=== PATIENT | male | born 1955 | race Caucasian/White ===

== ENCOUNTER 2018-03-04 05:32 | Inpatient (IN) | payer BC ==
--- NOTE | 2018-02-24 16:54 | HP ---
HISTORY AND PHYSICAL: DATE OF ADMISSION/SURGERY: 03/04/18. DATE OF OFFICE VISIT: 02/22/18. SURGEON: Yessenia Lai M.D.* (DICTATED BY TOSIN FERNANDEZ) PROCEDURE: Left total knee arthroplasty. CHIEF COMPLAINT: Left knee pain. HISTORY OF PRESENT ILLNESS: Mr. Dale is a 62-year-old gentleman with continued complaints of left knee pain. He has failed conservative treatment and elected to proceed with a left total knee arthroplasty. PAST MEDICAL HISTORY: Diabetes, hypertension, and high cholesterol. PAST SURGICAL HISTORY: Left knee scope x2. CURRENT MEDICATIONS: 1. Metformin 500 mg twice a day. 2. Atorvastatin calcium 80 mg every other day. 3. Lisinopril 20 mg daily. 4. Glipizide 5 mg twice a day. 5. Metoprolol 50 mg twice a day. 6. Amlodipine 5 mg once a day. ALLERGIES: No known drug allergies. FAMILY HISTORY: Coronary artery disease, prostate cancer, and stroke. SOCIAL HISTORY: He is a 62-year-old gentleman, who lives alone. He smokes about a pack a day. Denies use of drugs, uses occasional alcohol. REVIEW OF SYSTEMS: A complete 14-point review of systems was reviewed with the patient. It was positive for diabetes. He denies a history of DVT, PE, hepatitis, HIV or anesthesia problems. PHYSICAL EXAMINATION GENERAL: He is well developed, well nourished, in no acute distress. VITAL SIGNS: He stands 6 feet 1 inch tall, weighs 267 pounds. His blood pressure is 146/92, and his heart rate is 80. HEENT: Normocephalic, atraumatic. NECK: Supple. No palpable lymph nodes. PULMONARY: Lungs are clear to auscultation bilaterally. CARDIO: Regular rate and rhythm. Strong S1, S2. ABDOMEN: Soft, nontender, nondistended. MUSCULOSKELETAL: Left lower extremity: The skin is intact. There are no open wounds or abrasions. He has a moderate joint effusion. He has tenderness over the medial and lateral joint line. Range of motion is 10 to 120 degrees with patellofemoral crepitus. There is a significant varus deformity. He has a 2+ dorsalis pedis pulse, intact sensation and his lower extremity muscle group strengths are intact at 5/5. NEUROLOGIC: He is alert and oriented x3. ASSESSMENT AND PLAN: Mr. Dale is a 62-year-old gentleman with end-stage osteoarthritis of the left knee. He has failed conservative treatment and elected to proceed with a left total knee arthroplasty. Surgery is scheduled for 03/04/[address] Lai discussed the risks, the benefits of the surgery at today's visit and all of his questions were answered. He will follow up with Dr. Lai 2 weeks after the surgery. TOSIN FERNANDEZ [id number]/CPS #: [id number] [facility]
[~2018-03-04 05:32] MED LIST: Buffered Lidocaine 0.9% SYRIN* 5 ML/SYR SYRINGE INTRADERM ONE; Tranexamic Acid 1,000 MG in NS 0.9% 50 ML* (outpatient use) IV SCH
--- OUTSIDE RECORDS SUMMARY | 2018-03-04 05:36 | XMS REPORT | Continuity of Care Document ---
:1955 External Reference #:[id number] Author Name MoniquePool salter Care Team Providers Name Role Phone Sabino Robert DO Primary Care Physician Unavailable Payers Type Date Identification Numbers Payment Provider Subscriber Policy Number: [id number] [employer] Roger Dale PayID: [id number] [address] [address] [place] [address] Advance Directives Description No Information Available Problems Date Description Provider Status Onset: 12/07/2017 Localized, primary osteoarthritis Yessenia Lai M.D. Active Family History Date Family Member(s) Problem(s) Comments General No Current Problems Social History Type Date Description Comments Sex Unknown Lives With Alone Occupation Retired ETOH Use Currently consumes 5-10 drinks/week alcohol Tobacco Use Start: Unknown Heavy tobacco smoker (more than 10 cigarettes/day) Smoking Status Reviewed: 02/22/18 Heavy tobacco smoker (more than 10 cigarettes/day) Exercise Type/Frequency Exercises regularly Allergies, Adverse Reactions, Alerts Description No Known Drug Allergies Medications Medication Date Status Form Strength Qnty SIG Indications Ordering Provider Metformin HCL / Active Tablets 500mg 60tabs 1 PO bid Unknown 0000 Atorvastatin 00/00/ Active Tablets 80mg 30tabs 1 po every Unknown Calcium 0000 other day Lisinopril 00/ Active Tablets 20mg 90tabs 1 po qd Unknown 0000 Glipizide 00/ Active Tablets 5mg 60tabs 1 po bid Unknown 0000 Metoprolol 00// Active Tablets 50mg Take 1 Unknown Tartrate 0000 Tablet By Mouth Two Times Daily Amlodipine 00// Active Tablets 5mg Take 1 Unknown Besylate 0000 Tablet By Mouth Every Day Aspirin 00// Hx Tablets DR 325mg 1 po qd Unknown 0000 - 2017 Norvasc 00// Hx Tablets 5mg 60tabs 1 po qd Unknown 0000 - 2017 Viagra / Hx Tablets 50mg 10tabs 1 po prn Unknown 0000 - 2017 Fluocinonide / Hx Ointment 0.05% 90gram as Unknown 0000 - s directed 2017 Immunizations Description No Information Available Vital Signs Date Vital Result Comment 02/22/2018 8:27am Height 73.25 inches 6'1.25" Weight 267.00 lb Heart Rate 80 /min BP Systolic 146 mmHg BP Diastolic 92 mmHg BMI (Body Mass Index) 35.0 kg/m2 12/07/2017 9:38am Height 73.25 inches 6'1.25" Weight 265.00 lb Heart Rate 72 /min BP Systolic 154 mmHg BP Diastolic 94 mmHg BMI (Body Mass Index) 34.7 kg/m2 12/17/2011 8:54am Height 73 inches 6'1" Weight 250.00 lb BP Systolic 138 mmHg BP Diastolic 80 mmHg BMI (Body Mass Index) 33.0 kg/m2 11/05/2011 1:21pm Height 73 inches 6'1" Weight 250.00 lb BP Systolic 140 mmHg BP Diastolic 90 mmHg BMI (Body Mass Index) 33.0 kg/m2 Results Description No Information Available Procedures Date Code Description Status 12/25/2011 56292 Arthroscopy,Knee,Meniscectomy Medial Or Lateral Completed 11/05/2011 72944 Xray Knee 3 Views Completed Encounters Type Date Location Provider Dx Diagnosis Office Visit 12/07/2017 Orthopedic Yessenia Lai, M25.562 Pain in left knee 9:30a [facility] M25.462 Effusion, left knee M17.12 Unilateral primary osteoarthritis, left knee Office Visit 11/26/2011 9:45a Joint Gita Simon, 717.3 [facility] [place] Medial Meniscus Other & Unspec Office Visit 11/05/2011 1:15p Joint Gita Simon 719.46 Pain Joint Lower of [place] Leg Plan of Treatment Future Appointment(s):03/17/2018 9:45 am - [email or web address]04[facility]2018 7:30 am - BOB Nick at [facility]03/04/2018 7:30 am - TOSIN Reynaga at [facility]03/04/2018 7:30 am - Yessenia Lai M.D. at [facility]02/22/2018 - Yessenia Lai M.D.M17.12 Unilateral primary osteoarthritis, left kneeFollow up:Follow up: 2 weeks after [id number] Effusion, left kneeM25.562 Pain in left knee
--- OUTSIDE RECORDS SUMMARY | 2018-03-04 05:37 | XMS REPORT | Continuity of Care Document ---
:1955 External Reference #:[id number] Author Name Destiny Leija Care Team Providers Name Role Phone Sabino Robert DO Care Team Information Supervisor Press Room Unavailable Payers Type Date Identification Numbers Payment Provider Subscriber Policy Number: [id number] [facility] [place] PayID: [id number] [address] [address] [place] [phone] Advance Directives Description No Information Available Problems Date Description Provider Status Onset: 12/29/2012 Obesity Sabino Robert DO Active Onset: 12/29/2012 Localized, primary osteoarthritis of the Sabino Robert DO Active lower leg Onset: 12/29/2012 Type 2 diabetes mellitus Sabino Robert DO Active Onset: 08/17/2007 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 Onset: 12/22/2005 Hearing loss Waldemar Amezcua MD Active Onset: 12/22/2005 Strain of rotator cuff capsule Waldemar Amezcua MD Active Onset: 08/12/2004 Malaise and fatigue Waldemar Amezcua MD Active Onset: 08/12/2004 Tobacco user Waldemar Amezcua MD Active Onset: 08/12/2004 Benign essential hypertension Waldemar Amezcua MD Active Onset: 08/12/2004 Mixed hyperlipidemia Waldemar Amezcua MD Active Family History Date Family Member(s) Problem(s) Comments Children 1 Siblings 4 Third Brother Hypercholesterolemia Fourth Brother Heart Murmur Social History Type Date Description Comments Sex Unknown Marital Status 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 Tobacco Use Start: Unknown Current Cigarette Smoker 1 Pack Daily ETOH Use Occasionally consumes beer ETOH Use Occasionally consumes alcohol Allergies, Adverse Reactions, Alerts Description No Known Drug Allergies Medications Medication Date Status Form Strength Qnty SIG Indications Ordering Provider Metoprolol 12/29/ Active Tablets 50mg 180tab take 1 Robert, Tartrate 2016 s tablet by Sabino, mouth two DO times daily Viagra 01/22/ Active Tablets 100mg 18tabs 1/2 To 1 By Jakob 2015 Mouth Every Sabino, Day as DO Needed Atorvastatin 05/23/ Active Tablets 80mg 45tabs Take One Robert, Calcium 2014 Tablet By Sabino, Mouth Every DO Other Day Metformin HCL 04/18/ Active Tablets 500mg 180tab Take 1 Robert, 2014 s Tablet By Sabino, Mouth Two DO Times Daily Lisinopril 04/18/ Active Tablets 20mg 180tab Take 2 Robert, 2014 s Tablets By Sabino, Mouth Every DO Day Glipizide 07/15/ Active Tablets 5mg 90tabs Take 1 Robert, 2010 Tablet By Sabino, Mouth Every DO Morning With Breakfast Aspirin Low 01/21/ Active Chewtabs 81mg 1 po qd Seven, Dose 2009 MD Waldemar Amlodipine 02/19/ Active Tablets 5mg 90tabs Take 1 Robert, Besylate 2008 Tablet By Sabino, Mouth Every DO Day Ibuprofen / Active Tablets 200mg 2 po prn Unknown 0000 Bupropion HCL 07/11/ Hx Tablets ER 150mg 60tabs 1 by mouth 305.1 Robert, ER (SR) 2015 - 12HR twice a day Sabino 2014 Atenolol 06/11/ Hx Tablets 50mg 90tabs Take 1 Jakob, 2014 - Tablet By Sabino, 12/29/ Mouth Every DO 2016 Day Viagra 08/15/ Hx Tablets 50mg 18tabs 1 by mouth Jakob 2007 - as needed Sabino 2015 Fluocinonide-E / Hx Cream 0.05% 30unit Use bid prn Amezcua, 0000 - s Rash Waldemar, 07/11/ 2014 Immunizations CPT Code Status Date Vaccine Lot # [id number] Given 07/23/2017 Tdap (Adacel) Ages 7 And Above Only [id number] Refused 02/16/2018 Afluria Or Fluvirin Flu Vac Intramuscular [id number] Refused 07/23/2017 Flu Vaccine NOS Vital Signs Date Vital Result Comment 02/16/2018 10:51am Body Temperature 96.8 F Weight 266.00 lb Heart Rate 72 /min BP Systolic 138 mmHg BP Diastolic 96 mmHg Respiratory Rate 18 /min Height 73.5 inches 6'1.50" (06/2016) BMI (Body Mass Index) 34.6 kg/m2 07/23/2017 7:57am Weight 270.00 lb Heart Rate 80 /min BP Systolic 142 mmHg BP Diastolic 76 mmHg Respiratory Rate 18 /min Height 73.5 inches 6'1.50" (06/2016) BMI (Body Mass Index) 35.1 kg/m2 01/22/2017 8:04am Weight 265.00 lb Heart Rate 76 /min BP Systolic 148 mmHg BP Diastolic 76 mmHg Respiratory Rate 18 /min Height 73.5 inches 6'1.50" (06/2016) BMI (Body Mass Index) 34.5 kg/m2 07/23/2016 8:03am Weight 268.00 lb Heart Rate 64 /min BP Systolic 142 mmHg BP Diastolic 84 mmHg Respiratory Rate 19 /min Height 73.5 inches 6'1.50" (06/2016) BMI (Body Mass Index) 34.9 kg/m2 01/23/2016 8:05am Weight 262.00 lb Heart Rate 78 /min BP Systolic 152 mmHg BP Diastolic 92 mmHg Respiratory Rate 18 /min Height 73.5 inches 6'1.50" BMI (Body Mass Index) 34.1 kg/m2 06/22/2015 8:06am Weight 268.00 lb Heart Rate 72 /min BP Systolic 154 mmHg BP Diastolic 92 mmHg BP Systolic Recheck 136 mmHg BP Diastolic Recheck 82 mmHg Respiratory Rate 18 /min Height 73.5 inches 6'1.50" BMI (Body Mass Index) 34.9 kg/m2 01/17/2015 8:04am Weight 262.00 lb Heart Rate 72 /min BP Systolic 130 mmHg BP Diastolic 84 mmHg Respiratory Rate 21 /min Height 73.5 inches 6'1.50" BMI (Body Mass Index) 34.1 kg/m2 10/04/2014 8:13am Weight 264.00 lb Heart Rate 66 /min BP Systolic 112 mmHg BP Diastolic 86 mmHg Respiratory Rate 18 /min Height 73.5 inches 6'1.50" BMI (Body Mass Index) 34.4 kg/m2 07/11/2014 9:06am Weight 273.00 lb Heart Rate 72 /min BP Systolic 136 mmHg BP Diastolic 86 mmHg Respiratory Rate 20 /min Height 73.5 inches 6'1.50" BMI (Body Mass Index) 35.5 kg/m2 01/02/2014 8:03am BP Systolic 136 mmHg BP Diastolic 88 mmHg 01/02/2014 8:03am Weight 269.00 lb Heart Rate 72 /min BP Systolic 148 mmHg BP Diastolic 88 mmHg Respiratory Rate 18 /min Height 73.5 inches 6'1.50" 07/01/2013 8:05am Weight 278.00 lb Heart Rate 70 /min BP Systolic 142 mmHg BP Diastolic 80 mmHg Respiratory Rate 18 /min 12/29/2012 10:28am Weight 267.00 lb Heart Rate 72 /min BP Systolic 140 mmHg BP Diastolic 88 mmHg Respiratory Rate 19 /min 06/14/2012 8:48am Weight 276.00 lb Heart Rate 72 /min BP Systolic 130 mmHg BP Diastolic 78 mmHg Respiratory Rate 24 /min 12/15/2011 8:07am BP Systolic 138 mmHg repeat/PH BP Diastolic 92 mmHg repeat/PH 12/15/2011 8:07am Weight 260.00 lb Heart Rate 72 /min BP Systolic 154 mmHg BP Diastolic 94 mmHg Respiratory Rate 20 /min Height 73.5 inches 6'1.50" 09/29/2011 9:30am Body Temperature 97.1 F Weight 262.50 lb Heart Rate 70 /min BP Systolic 114 mmHg BP Diastolic 74 mmHg Respiratory Rate 18 /min Height 73.5 inches 6'1.50" 07/29/2011 8:13am BP Systolic 138 mmHg repeat BP Diastolic 84 mmHg repeat 07/29/2011 8:13am Weight 269.00 lb Down 11 LBS Heart Rate 72 /min BP Systolic 150 mmHg BP Diastolic 92 mmHg Respiratory Rate 20 /min Height 73.5 inches 6'1.50" 01/27/2011 9:05am Weight 280.00 lb Heart Rate 60 /min BP Systolic 114 mmHg BP Diastolic 76 mmHg Respiratory Rate 20 /min Height 73.5 inches 6'1.50" 08/01/2010 9:27am Weight 280.00 lb Heart Rate 60 /min BP Systolic 116 mmHg BP Diastolic 80 mmHg Height 73.5 inches 6'1.50" 08/01/10 01/21/2010 8:19am Weight 279.00 lb Heart Rate 68 /min BP Systolic 130 mmHg BP Diastolic 84 mmHg 12/31/2009 10:28am Weight 258.00 lb Heart Rate 76 /min BP Systolic 124 mmHg l arm BP Diastolic 88 mmHg l arm Respiratory Rate 18 /min 07/20/2009 8:13am Weight 290.00 lb Up 2# Heart Rate 74 /min BP Systolic 134 mmHg L/LG BP Diastolic 96 mmHg L/LG Respiratory Rate 17 /min 01/19/2009 8:16am Weight 288.00 lb Heart Rate 72 /min BP Systolic 130 mmHg BP Diastolic 80 mmHg 07/20/2008 8:13am Weight 287.00 lb Heart Rate 80 /min BP Systolic 132 mmHg BP Diastolic 90 mmHg Respiratory Rate 20 /min 01/20/2008 8:14am Weight 279.00 lb Heart Rate 76 /min BP Systolic 140 mmHg BP Diastolic 90 mmHg Height 72 inches 6'0" 09/27/2007 8:07am Weight 280.00 lb Heart Rate 80 /min BP Systolic 144 mmHg BP Diastolic 98 mmHg Respiratory Rate 18 /min Height 72 inches 6'0" 08/16/2007 4:27pm Heart Rate 68 /min BP Systolic 150 mmHg BP Diastolic 94 mmHg Height 72 inches 6'0" 06/30/2007 9:01am Weight 280.00 lb Heart Rate 80 /min BP Systolic 140 mmHg LG Cuff BP Diastolic 100 mmHg LG Cuff Height 72 inches 6'0" 12/28/2006 8:29am Weight 277.00 lb Heart Rate 66 /min BP Systolic 120 mmHg BP Diastolic 80 mmHg Respiratory Rate 19 /min Height 72 inches 6'0" 06/25/2006 8:36am Weight 286.00 lb Heart Rate 68 /min BP Systolic 134 mmHg BP Diastolic 80 mmHg Respiratory Rate 18 /min Height 72 inches 6'0" 12/22/2005 8:34am Weight 280.00 lb Heart Rate 60 /min BP Systolic 120 mmHg BP Diastolic 84 mmHg Height 72 inches 6'0" 05/15/2005 8:51am Weight 280.00 lb 05/15/2005 9:14am Heart Rate 74 /min BP Systolic 136 mmHg BP Diastolic 94 mmHg Results Test Date Facility Test Result H/L Range Note Hemoglobin A1c 02/16/2018 [facility] Hemoglobin A1c 7.4 % High 4.1-5.9 1 Estimated Average Glucose Calc 166 mg/dL High 71-140 CBC with Auto Diff-fcmg 02/16/2018 [facility] WBC 8.2 K/uL 4.1-11.0 RBC 5.33 M/uL 4.60-6.10 Hemoglobin 16.6 gm/dL 13.5-18.0 Hematocrit 48.7 % 41.0-53.0 MCV 91.4 fL 80.0-97.0 MCH 31.2 pg 27.0-32.0 MCHC 34.1 g/dL 32.0-36.0 RDW 13.9 % 11.5-14.5 PLT Count 234 K/ul 140-400 MPV 8.5 FL 7.1-10.7 Neutrophil 61.9 % 35.0-75.0 Lymphocyte 24.1 % 16.0-52.0 Monocyte 10.2 % High 2.0-10.0 Eosinophil 2.5 % 0.0-5.0 Basophil 1.3 % 0.0-4.0 Abs Neutrophils 5.1 K/uL 2.1-8.0 Abs Lymphocytes 2.0 K/uL 0.8-5.5 Abs Monocytes 0.8 K/uL 0.1-1.0 Abs Eosinophils 0.2 K/uL 0.0-0.5 Abs Basophils 0.1 K/uL 0.0-0.3 Basic (BMP) 02/16/2018 [facility] Sodium 139 mmol/L 135-146 2 Potassium 4.9 mmol/L 3.5-5.2 Chloride# 103 mmol/L 97-110 3 Carbon Dioxide 27 mmol/L 24-34 Glucose 133 mg/dL High 70-105 BUN 11 mg/dL 6-26 Creatinine 0.8 mg/dL 0.5-1.4 Calcium 9.9 mg/dL 8.5-10.2 Non Isa Egfr >60 >60 4 Isa Egfr >60 >60 5 Anion Gap 9 mmol/L 5-15 6 Laboratory test finding 02/16/2018 [facility] TSH 2.89 uIU/mL 0.35-4.94 Lipid Treatment 02/16/2018 [facility] Cholesterol 159 mg/dL 50-199 Triglycerides 154 mg/dL 30-200 HDL 43 mg/dL 29-71 7 Chol/ HDL Ratio 3.7 ratio Low 4.0-6.7 VLDL 31 mg/dL High 2-29 LDL (Calc) 85 mg/dL 20-99 8 Alt 26 U/L 3-42 Ast 16 U/L 8-42 Laboratory test finding 07/23/2017 [facility] PSA 0.590 ng/mL 0.000-4.000 9 Lipid Treatment 07/23/2017 [facility] Cholesterol 149 mg/dL 50-199 Triglycerides 110 mg/dL 30-200 HDL 44 mg/dL 29-71 10 Chol/ HDL Ratio 3.4 ratio Low 4.0-6.7 VLDL 22 mg/dL 2-29 LDL (Calc) 83 mg/dL 20-99 11 Alt 30 U/L 3-42 Ast 18 U/L 8-42 Laboratory test finding 07/23/2017 [facility] TSH 2.23 uIU/mL 0.35-4.94 Basic (BMP) 07/23/2017 [facility] Sodium 142 mmol/L 135-146 12 Potassium 4.6 mmol/L 3.5-5.2 Chloride# 106 mmol/L 97-110 13 Carbon Dioxide 28 mmol/L 24-34 Glucose 118 mg/dL High 70-105 BUN 10 mg/dL 6-26 Creatinine 0.8 mg/dL 0.5-1.4 Calcium 9.8 mg/dL 8.5-10.2 Non Isa Egfr >60 >60 14 Isa Egfr >60 >60 15 Anion Gap 8 mmol/L 5-15 16 CBC with Auto Diff-fcmg 07/23/2017 [facility] WBC 6.6 K/uL 4.1-11.0 RBC 5.32 M/uL 4.60-6.10 Hemoglobin 16.4 gm/dL 13.5-18.0 Hematocrit 48.5 % 41.0-53.0 MCV 91.2 fL 80.0-97.0 MCH 30.8 pg 27.0-32.0 MCHC 33.7 g/dL 32.0-36.0 RDW 14.5 % 11.5-14.5 PLT Count 198 K/ul 140-400 MPV 8.6 FL 7.1-10.7 Neutrophil 57.0 % 35.0-75.0 Lymphocyte 24.8 % 16.0-52.0 Monocyte 13.7 % High 2.0-10.0 Eosinophil 3.8 % 0.0-5.0 Basophil 0.7 % 0.0-4.0 Abs Neutrophils 3.8 K/uL 2.1-8.0 Abs Lymphocytes 1.6 K/uL 0.8-5.5 Abs Monocytes 0.9 K/uL 0.1-1.0 Abs Eosinophils 0.3 K/uL 0.0-0.5 Abs Basophils 0.0 K/uL 0.0-0.3 Hemoglobin A1c 07/23/2017 [facility] Hemoglobin A1c 7.3 % High 4.1-5.9 Estimated Average Glucose Calc 163 mg/dL High 71-140 Hemoglobin A1c 01/22/2017 [facility] Hemoglobin A1c 7.4 % High 4.1-5.9 Estimated Average Glucose Calc 166 High 71-140 Comprehensive Met Panel-FCMG 01/22/2017 [facility] Sodium 140 mmol/L 135- 146 17 Potassium 4.6 mmol/L 3.5-5.2 Chloride# 102 mmol/L 97-110 18 Carbon Dioxide 28 mmol/L 24-34 Glucose 126 mg/dL High 70-105 Creatinine 0.9 mg/dL 0.5-1.4 Calcium 10.3 mg/dL High 8.5-10.2 Total Protein 7.2 g/dL 6.0-8.0 Albumin 4.9 g/dL 3.6-4.9 Globulin 2.3 g/dL 2.0-3.5 A/G Ratio 2.1 Ratio 1.0-2.2 Total Bilirubin 1.4 mg/dL High 0.1-1.3 Alkaline Phosphatase 66 U/L 24-140 Alt 21 U/L 3-42 Ast 15 U/L 8-42 Isa Egfr >60 >60 19 Non Isa Egfr >60 >60 20 Anion Gap 10 mmol/L 7-16 21 BUN 18 mg/dL 6-26 Hemoglobin A1c 07/23/2016 [facility] Hemoglobin A1c 7.3 % High 4.1-5.9 22 Estimated Average Glucose Calc 163 High 71-140 CBC With Auto Diff 07/23/2016 [facility] WBC 6.7 K/uL 4.1-11.0 RBC 5.35 M/uL 4.60-6.10 Hemoglobin 16.4 gm/dL 13.5-18.0 Hematocrit 49.3 % 41.0-53.0 MCV 92.2 fL 80.0-97.0 MCH 30.6 pg 27.0-32.0 MCHC 33.2 g/dL 32.0-36.0 RDW 13.8 % 11.5-14.5 PLT Count 207 K/ul 140-400 Neutrophil 53.7 % 35.0-75.0 Lymphocyte 29.4 % 16.0-52.0 Monocyte 11.8 % High 2.0-10.0 Eosinophil 4.1 % 0.0-5.0 Basophil 1.0 % 0.0-4.0 Abs Neutrophils 3.6 K/uL 2.1-8.0 Abs Lymphocytes 2.0 K/uL 0.8-5.5 Abs Monocytes 0.8 K/uL 0.1-1.0 Abs Eosinophils 0.3 K/uL 0.0-0.5 Abs Basophils 0.1 K/uL 0.0-0.3 Basic (BMP) 07/23/2016 [facility] Sodium 141 mmol/L 135-146 23 Potassium 4.6 mmol/L 3.5-5.2 Chloride# 107 mmol/L 97-110 24 Carbon Dioxide 25 mmol/L 24-34 Glucose 125 mg/dL High 70-105 BUN 13 mg/dL 6-26 Creatinine 0.9 mg/dL 0.5-1.4 Calcium 9.6 mg/dL 8.5-10.2 Non Isa Egfr >60 >60 25 Isa Egfr >60 >60 26 Anion Gap 14 mmol/L 7-16 27 Laboratory test finding 07/23/2016 [facility] TSH 2.22 uIU/mL 0.35-4.94 Lipid Treatment 07/23/2016 [facility] Cholesterol 132 mg/dL 50-199 Triglycerides 97 mg/dL 30-200 HDL 42 mg/dL 29-71 28 Chol/ HDL Ratio 3.2 ratio Low 4.0-6.7 VLDL 19 mg/dL 2-29 LDL (Calc) 71 mg/dL 20-99 29 Alt 23 U/L 3-42 Ast 15 U/L 8-42 Laboratory test finding 07/23/2016 [facility] PSA 0.540 ng/mL 0.000-4.000 30 Comprehensive Metabolic (CMP) 01/23/2016 [facility] Sodium 137 mmol/L 134- 142 Potassium 4.5 mmol/L 3.5-5.2 Chloride 107 mmol/L 97-109 Carbon Dioxide 27 mmol/L 24-34 Glucose 118 mg/dL High 70-105 BUN 15 mg/dL 6-26 Creatinine 0.8 mg/dL 0.5-1.4 Calcium 9.8 mg/dL 8.5-10.2 Total Protein 6.8 g/dL 6.0-8.0 Albumin 4.4 g/dL 3.6-4.9 Globulin 2.4 g/dL 2.0-3.5 A/G Ratio 1.8 Ratio 1.0-2.2 Total Bilirubin 1.0 mg/dL 0.1-1.3 Alkaline Phosphatase 53 U/L 24-140 Alt 20 U/L 3-42 Ast 14 U/L 8-42 Anion Gap 8 mmol/L 6-14 Isa Egfr >60 >60 31 Non Isa Egfr >60 >60 32 Laboratory test finding 01/23/2016 [facility] Hemoglobin A1c 6.9 % High 4.1- 5.9 Laboratory test finding 09/24/2015 [facility] Hemoglobin A1c 7.1 % High 4.1- 5.9 Laboratory test finding 06/14/2015 [facility] Hemoglobin A1c 7.4 % High 4.1- 5.9 CBC With Auto Diff 06/14/2015 [facility] WBC 8.2 K/uL 4.1-11.0 RBC 5.62 M/uL 4.60-6.10 Hemoglobin 16.7 gm/dL 13.5-18.0 Hematocrit 51.1 % 41.0-53.0 MCV 90.8 fL 80.0-97.0 MCH 29.7 pg 27.0-32.0 MCHC 32.7 g/dL 32.0-36.0 RDW 14.3 % 11.5-14.5 PLT Count 202 K/ul 140-400 Neutrophil 60.4 % 35.0-75.0 Lymphocyte 26.7 % 16.0-52.0 Monocyte 9.4 % 2.0-10.0 Eosinophil 2.8 % 0.0-5.0 Basophil 0.7 % 0.0-4.0 Abs Neutrophils 5.0 K/uL 2.1-8.0 Abs Lymphocytes 2.2 K/uL 0.8-5.5 Abmon 0.8 K/uL 0.1-1.0 Abs Eosinophils 0.2 K/uL 0.0-0.5 Abs Basophils 0.1 K/uL 0.0-0.3 Basic (BMP) 06/14/2015 [facility] Sodium 136 mmol/L 134-142 Potassium 4.6 mmol/L 3.5-5.2 Chloride 102 mmol/L 97-109 Carbon Dioxide 28 mmol/L 24-34 Glucose 122 mg/dL High 70-105 BUN 11 mg/dL 6-26 Creatinine 0.9 mg/dL 0.5-1.4 Calcium 9.7 mg/dL 8.5-10.2 Anion Gap 11 mmol/L 6- Non Isa Egfr >60 >60 33 Isa Egfr >60 >60 34 Laboratory test finding 06/14/2015 [facility] TSH 2.64 uIU/mL 0.35-4.94 Lipid Treatment 06/14/2015 [facility] Cholesterol 148 mg/dL 50-199 Triglycerides 140 mg/dL 30-200 HDL 40 mg/dL 29-71 35 Chol/ HDL Ratio 3.7 ratio Low 4.0-6.7 VLDL 28 mg/dL 2-29 LDL (Calc) 80 mg/dL 20-99 36 Alt 22 U/L 3-42 Ast 15 U/L 8-42 Laboratory test finding 06/14/2015 [facility] PSA 0.620 ng/mL 0.000-4.000 37 Comprehensive Metabolic (CMP) 01/10/2015 [facility] Sodium 140 mmol/L 134- 142 Potassium 5.0 mmol/L 3.5-5.2 Chloride 104 mmol/L 97-109 Carbon Dioxide 30 mmol/L 24-34 Glucose 106 mg/dL High 70-105 BUN 14 mg/dL 6-26 Creatinine 0.9 mg/dL 0.5-1.4 Calcium 9.7 mg/dL 8.5-10.2 Total Protein 6.8 g/dL 6.0-8.0 Albumin 4.4 g/dL 3.6-4.9 Globulin 2.4 g/dL 2.0-3.5 A/G Ratio 1.8 Ratio 1.0-2.2 Total Bilirubin 1.1 mg/dL 0.1-1.3 Alkaline Phosphatase 67 U/L 24-140 Alt 21 U/L 3-42 Ast 13 U/L 8-42 Anion Gap 11 mmol/L 6- Isa Egfr >60 >60 38 Non Isa Egfr >60 >60 39 Laboratory test 01/10/2015 [facility] Hemoglobin A1c 7.1 % High 4.1-5.9 finding Laboratory test 10/02/2014 [facility] Hemoglobin A1c 7.0 % High 4.1-5.9 finding Laboratory test 07/11/2014 [facility] Hepatitis C Non reactive Non reactive finding Virus Antibody HIV Combo By [facility] 07/11/2014 [facility] HIV Combo Eia Negative Negative Laboratory test 07/11/2014 [facility] Hemoglobin A1c 7.5 % High 4.1-5.9 finding CBC With Auto 07/11/2014 [facility] WBC 6.9 K/uL 4.1-11.0 Diff RBC 5.29 M/uL 4.60-6.10 Hemoglobin 15.8 gm/dL 13.5-18.0 Hematocrit 47.7 % 41.0-53.0 MCV 90.2 fL 80.0-97.0 MCH 29.9 pg 27.0-32.0 MCHC 33.1 g/dL 32.0-36.0 RDW 14.3 % 11.5-14.5 PLT Count 236 K/ul 140-400 Neutrophil 58.7 % 35.0-75.0 Lymphocyte 26.5 % 16.0-52.0 Monocyte 11.0 % High 2.0-10.0 Eosinophil 2.9 % 0.0-5.0 Basophil 0.9 % 0.0-4.0 Abs Neutrophils 4.0 K/uL 2.1-8.0 Abs Lymphocytes 1.8 K/uL 0.8-5.5 Abmon 0.8 K/uL 0.1-1.0 Abs Eosinophils 0.2 K/uL 0.0-0.5 Abs Basophils 0.1 K/uL 0.0-0.3 Basic (BMP) 07/11/2014 [facility] Sodium 137 mmol/L 134-142 Potassium 4.9 mmol/L 3.5-5.2 Chloride 104 mmol/L 97-109 Carbon Dioxide 27 mmol/L 24-34 Glucose 103 mg/dL 70-105 BUN 17 mg/dL 6-26 Creatinine 0.8 mg/dL 0.5-1.4 Calcium 9.7 mg/dL 8.5-10.2 Anion Gap 11 mmol/L 6-14 Non Isa Egfr >60 >60 40 Isa Egfr >60 >60 41 Laboratory test finding 07/11/2014 [facility] TSH 2.14 uIU/mL 0.34-5.60 Lipid Treatment 07/11/2014 [facility] Cholesterol 134 mg/dL 50-199 Triglycerides 113 mg/dL 30-200 HDL 37 mg/dL 29-71 42 Chol/ HDL Ratio 3.6 ratio Low 4.0-6.7 VLDL 23 mg/dL 2-29 LDL (Calc) 74 mg/dL 20-99 43 Alt 24 U/L 3-42 Ast 15 U/L 8-42 Lipid Panel 01/02/2014 N2N/CCD Import Chol/HDL Ratio 3.8 ratio Cholesterol 135.0 mg/dL 50.0-199.0 HDL 36.0 mg/dL 29.0-67.0 LDL, Calculated 79.8 mg/dL 20.0-129.0 Triglycerides 96.0 mg/dL 30.0-249.0 vLDL 19.2 ng/dL Laboratory test finding 01/02/2014 N2N/CCD Import % A1c 6.9 % High 4.1- 6.5 % Baso. 1.8 % 0.0-2.0 % Eos. 3.7 % 0.0-4.0 % Lymph 26 % 20-44 % Harney 9.4 % 2.0-10.0 % Jerel 59 % 50-70 Absolute Baso. 0.1 K/ul 0.0-0.3 Absolute Eos. 0.3 K/ul 0.0-0.5 Absolute Lymph. 1.7 K/ul 0.8-4.8 Absolute Harney. 0.6 K/ul 0.1-1.0 Absolute Jerel. 4.01 K/ul 2.05-7.63 Alt 20.0 U/L Low 21.0-72.0 Ast 13.0 U/L Low 17.0-59.0 BUN 14.0 mg/dL 9.0-21.0 BUN/Creat Ratio 17.5 ratio 12.0-20.0 Calcium 9.9 mg/dL 8.7-10.5 Chloride 105.0 mmol/L 98.0-107.0 Co2 24.0 mmol/L 22.0-30.0 Creatinine-Serum 0.8 mg/dL 0.8-1.5 Glucose 107.0 mg/dL 75.0-110.0 HCT 50.8 % 37.0-51.0 HGB 16.7 Gm/dl High 12.0-16.0 MCH 29.4 pg 26.0-32.0 MCHC 33.0 g/dL 31.0-36.0 MCV 89.2 Fl 80.0-97.0 MPV 6.9 fL 6.0-10.0 PLT 248 K/ul 140-440 Potasium 4.5 mmol/L 3.6-5.0 RBC 5.7 M/ul 4.2-6.3 RDW 12.8 % 11.5-14.5 Sodium 138.0 mmil/L 137.0-145.0 TSH 1.89 uIU/ml 0.50-6.00 WBC 6.8 K/ul 4.1-10.9 eGFR 105.9 Laboratory test finding 07/01/2013 N2N/CCD Import % A1c 6.8 % High 4.1- 6.5 Alt 30.0 U/L 21.0-72.0 Ast 18.0 U/L 17.0-59.0 BUN 13.0 mg/dL 9.0-21.0 BUN/Creat Ratio 16.3 ratio 12.0-20.0 Calcium 9.5 mg/dL 8.7-10.5 Chloride 105.0 mmol/L 98.0-107.0 Co2 22.0 mmol/L 22.0-30.0 Creatinine-Serum 0.8 mg/dL 0.8-1.5 Glucose 114.0 mg/dL High 75.0-110.0 Potasium 4.4 mmol/L 3.6-5.0 Sodium 138.0 mmil/L 137.0-145.0 eGFR 106.3 Lipid Panel 07/01/2013 N2N/CCD Import Chol/HDL Ratio 3.8 ratio Cholesterol 149.0 mg/dL 50.0-199.0 HDL 39.0 mg/dL 29.0-67.0 LDL, Calculated 84.2 mg/dL 20.0-129.0 Triglycerides 129.0 mg/dL 30.0-249.0 vLDL 25.8 ng/dL Laboratory test finding 12/29/2012 N2N/CCD Import % A1c 6.9 % High 4.1- 6.5 % Baso. 1.8 % 0.0-2.0 % Eos. 2.9 % 0.0-4.0 % Lymph 26 % 20-44 % Harney 8.4 % 2.0-10.0 % Jerel 61 % 50-70 A/G Ratio 1.8 ratio 1.6-2.2 Absolute Baso. 0.1 K/ul 0.0-0.3 Absolute Eos. 0.2 K/ul 0.0-0.5 Absolute Lymph. 2.1 K/ul 0.8-4.8 Absolute Harney. 0.7 K/ul 0.1-1.0 Absolute Jerel. 4.93 K/ul 2.05-7.63 Albumin 4.6 g/dL 3.5-5.0 Alk. Phos. 65.0 U/L 30.0-126.0 Alt 24.0 U/L 21.0-72.0 Anion Gap 9.0 mmol/L Low 10.0-20.0 Ast 15.0 U/L Low 17.0-59.0 BUN 15.0 mg/dL 9.0-21.0 BUN/Creat Ratio 18.8 ratio 12.0-20.0 Calcium 10.0 mg/dL 8.7-10.5 Chloride 107.0 mmol/L 98.0-107.0 Co2 25.0 mmol/L 22.0-30.0 Creatinine-Serum 0.8 mg/dL 0.8-1.5 Globulin 2.5 g/dL Low 2.7-4.3 Glucose 110.0 mg/dL 75.0-110.0 HCT 48.9 % 37.0-51.0 HGB 15.3 Gm/dl 12.0-16.0 MCH 29.1 pg 26.0-32.0 MCHC 31.3 g/dL 31.0-36.0 MCV 93.0 Fl 80.0-97.0 MPV 7.4 fL 6.0-10.0 PLT 263 K/ul 140-440 Potasium 4.3 mmol/L 3.6-5.0 RBC 5.3 M/ul 4.2-6.3 RDW 12.9 % 11.5-14.5 Sodium 141.0 mmil/L 137.0-145.0 TSH 1.80 uIU/ml 0.50-6.00 Total Bilirubin 1.5 mg/dL High 0.2-1.3 Total Protein 7.1 g/dL 6.3-8.2 WBC 8.1 K/ul 4.1-10.9 eGFR 107.3 mi/minper1.73 44 Lipid Panel 12/29/2012 N2N/CCD Import Chol/HDL Ratio 4.2 ratio Cholesterol 152.0 mg/dL 50.0-199.0 HDL 36.0 mg/dL 29.0-67.0 LDL, Calculated 88.8 mg/dL 20.0-129.0 Triglycerides 136.0 mg/dL 30.0-249.0 vLDL 27.2 ng/dL Laboratory test finding 06/14/2012 N2N/CCD Import % A1c 7.0 % High 4.1- 6.5 % Baso. 2.0 % 0.0-2.0 % Eos. 3.7 % 0.0-4.0 % Lymph 28 % 20-44 % Harney 9.3 % 2.0-10.0 % Jerel 57 % 50-70 Absolute Baso. 0.2 K/ul 0.0-0.3 Absolute Eos. 0.3 K/ul 0.0-0.5 Absolute Lymph. 2.2 K/ul 0.8-4.8 Absolute Harney. 0.7 K/ul 0.1-1.0 Absolute Jerel. 4.62 K/ul 2.05-7.63 Alt 25.0 U/L 21.0-72.0 Ast 18.0 U/L 17.0-59.0 BUN 12.0 mg/dL 9.0-21.0 BUN/Creat Ratio 13.3 ratio 12.0-20.0 CK 110 U/L 26-190 Calcium 10.5 mg/dL 8.7-10.5 Chloride 105.0 mmol/L 98.0-107.0 Co2 26.0 mmol/L 22.0-30.0 Creatinine-Serum 0.9 mg/dL 0.8-1.5 Glucose 114.0 mg/dL High 75.0-110.0 HCT 54.0 % High 37.0-51.0 HGB 16.9 Gm/dl High 12.0-16.0 MCH 28.4 pg 26.0-32.0 MCHC 31.4 g/dL 31.0-36.0 MCV 90.7 Fl 80.0-97.0 MPV 7.5 fL 6.0-10.0 PLT 278 K/ul 140-440 Potasium 4.6 mmol/L 3.6-5.0 RBC 6.0 M/ul 4.2-6.3 RDW 12.8 % 11.5-14.5 Sodium 141.0 mmil/L 137.0-145.0 TSH 2.07 uIU/ml 0.50-6.00 WBC 8.1 K/ul 4.1-10.9 eGFR 93.1 Lipid Panel 06/14/2012 N2N/CCD Import Chol/HDL Ratio 4.0 ratio Cholesterol 148.0 mg/dL 50.0-199.0 HDL 37.0 mg/dL 29.0-67.0 LDL, Calculated 84.2 mg/dL 20.0-129.0 Triglycerides 134.0 mg/dL 30.0-249.0 vLDL 26.8 ng/dL Laboratory test 12/15/2011 N2N/CCD Import Absolute 0.142 K/ul 0.0-0.3 45 finding Basophils Absolute Eosinophils 0.241 K/ul 0.0-0.5 Absolute Lymphocytes 2.24 K/ul 0.8-4.8 Absolute Monocytes 0.770 K/ul 0.1-1.0 Absolute Neutrophils 4.77 K/ul 2.05-7.63 Alt 31 U/L 21-72 Anion Gap 17 mmol/L 10-20 Ast 28 U/L 17-59 BUN 13 mg/dL 9-21 BUN/CR Ratio 17.5 Ratio 12-20 Basophil 1.7 % 0-2 CK 311 U/L High 26-190 46 CK-MB (Mass) 2.9 ng/mL 0.5-8.2 47 Calcium 10.0 mg/dL 8.7-10.5 Carbon Dioxide 23 mmol/L 22-30 Chloride 104 mmol/L 98-107 Creatinine, Serum 0.7 mg/dL Low 0.8-1.5 Eosinophil 3.0 % 0-4 Glucose 75 mg/dL 75-110 Hematocrit 48.8 % 37.0-51.0 Hemoglobin 16.5 GM/dl High 12.0-16.0 Hemoglobin A1c 6.1 % 4.1-6.5 Lymphocytes 27.5 % 20-44 MCH 29.7 pg 26.0-32.0 MCHC 33.9 g/dL 31.0-36.0 MCV 88 FL 80-97 Monocytes 9.4 % 2-10.0 Neutrophils 58.4 % 50-70 Platelet Count 276 K/ul 140-440 Potassium 4.7 mmol/L 3.6-5.0 RBC 5.56 M/ul 4.2-6.3 RDW 12.7 % 11.5-14.5 Relative % Index 0.9 % <5 48 Sodium 139 mmol/L 137-145 WBC 8.2 K/ul 4.1-10.9 Lipid Panel 12/15/2011 N2N/CCD Import Chol/HDL Ratio 2.9 49 Cholesterol 143 mg/dL 50-199 HDL Cholesterol 49 mg/dL 29-67 LDL 75 mg/dL 20-129 Triglycerides 95 mg/dL 30-249 VLDL Cholesterol 19 mg/dL Lipid Panel 07/23/2011 N2N/[employer] Import Chol/HDL Ratio 3.0 50, 51 Cholesterol 140 mg/dL 50-199 HDL Cholesterol 46 mg/dL 29-67 LDL 70 mg/dL 20-129 Triglycerides 118 mg/dL 30-249 VLDL Cholesterol 24 mg/dL Laboratory test finding 07/23/2011 [employer] Import Alt 35 U/L 21-72 Anion Gap 17 mmol/L 10-20 Ast 21 U/L 17-59 BUN 10 mg/dL 9-21 BUN/CR Ratio 12.6 Ratio 12-20 Calcium 9.8 mg/dL 8.7-10.5 Carbon Dioxide 25 mmol/L 22-30 Chloride 103 mmol/L 98-107 Creatinine, Serum 0.8 mg/dL 0.8-1.5 Glucose 103 mg/dL 75-110 Hemoglobin A1c 6.3 % 4.1-6.5 Potassium 4.2 mmol/L 3.6-5.0 Sodium 140 mmol/L 137-145 Laboratory test finding 01/20/2011 N2N/[employer] Import Alt 40 U/L -72 52 Anion Gap 14 mmol/L 10-20 Ast 25 U/L 17-59 BUN 17 mg/dL 9-21 BUN/CR Ratio 19.9 Ratio 12-20 Calcium 9.5 mg/dL 8.7-10.5 Carbon Dioxide 26 mmol/L 22-30 Chloride 106 mmol/L 98-107 Creatinine, Serum 0.9 mg/dL 0.8-1.5 Glucose 122 mg/dL High 75-110 Hemoglobin A1c 7.2 % High 4.1-6.5 Potassium 4.6 mmol/L 3.6-5.0 Serum Iron 112 g/dL 31-144 53 Sodium 141 mmol/L 137-145 Total Iron Binding Capacity 363 g/dL 245-419 54 Lipid Panel 01/20/2011 N2N/[employer] Import Chol/HDL Ratio 3.2 55 Cholesterol 141 mg/dL 50-199 HDL Cholesterol 44 mg/dL 29-67 LDL 77 mg/dL 20-129 Triglycerides 99 mg/dL 30-249 VLDL Cholesterol 20 mg/dL Laboratory test finding 07/15/2010 [employer] Import Alt 32 U/L -72 56 Anion Gap 15 mmol/L 10-20 Ast 22 U/L 17-59 BUN 13 mg/dL 9-21 BUN/CR Ratio 15.2 Ratio 12-20 Calcium 9.5 mg/dL 8.7-10.5 Carbon Dioxide 26 mmol/L 22-30 Chloride 103 mmol/L 98-107 Creatinine, Serum 0.9 mg/dL 0.8-1.5 Glucose 141 mg/dL High 75-110 Hemoglobin A1c 7.1 % High 4.1-6.5 Potassium 5.2 mmol/L High 3.6-5.0 Sodium 139 mmol/L 137-145 Lipid Panel 07/15/2010 N2N/CCD Import Chol/HDL Ratio 2.7 57 Cholesterol 125 mg/dL 50-199 HDL Cholesterol 45 mg/dL 29-67 LDL 60 mg/dL 20-129 Triglycerides 102 mg/dL 30-249 VLDL Cholesterol 20 mg/dL Laboratory test finding 12/31/2009 N2N/CCD Import A/G Ratio 1.6 1.0-2.2 Absolute Basophils 0.123 K/ul 0.0-0.3 Absolute Eosinophils 0.245 K/ul 0.0-0.5 Absolute Lymphocytes 2.12 K/ul 0.8-4.8 Absolute Monocytes 0.596 K/ul 0.1-1.0 Absolute Neutrophils 4.22 K/ul 2.05-7.63 Albumin 4.3 g/dL 3.5-5.0 Alkaline Phosphatase 91 U/L 30-126 Alt 34 U/L 21-72 Ast 22 U/L 17-59 BUN 15 mg/dL 9-21 BUN/CR Ratio 18.3 Ratio 12-20 Basophil 1.7 % 0-2 Calcium 9.8 mg/dL 8.7-10.5 Carbon Dioxide 26 mmol/L 22-30 Chloride 103 mmol/L 98-107 Creatinine, Serum 0.8 mg/dL 0.8-1.5 Eosinophil 3.4 % 0-4 Globulin 2.7 g/dL 2.7-4.3 Glucose 116 mg/dL High 75-110 Hematocrit 46.7 % 37.0-51.0 Hemoglobin 16.2 GM/dl High 12.0-16.0 Hemoglobin A1c 6.7 % High 4.1-6.5 Lymphocytes 29.0 % 20-44 MCH 29.9 pg 26.0-32.0 MCHC 34.6 g/dL 31.0-36.0 MCV 87 FL 80-97 Monocytes 8.2 % 2-10.0 Neutrophils 57.8 % 50-70 Platelet Count 256 K/ul 140-440 Potassium 4.4 mmol/L 3.6-5.0 RBC 5.40 M/ul 4.2-6.3 RDW 12.8 % 11.5-14.5 Sodium 139 mmol/L 137-145 Total Bilirubin 1.0 mg/dL 0.2-1.3 Total Protein 7.0 g/dL 6.3-8.2 WBC 7.3 K/ul 4.1-10.9 Lipid Panel 12/31/2009 N2N/CCD Import Chol/HDL Ratio 3.1 58 Cholesterol 137 mg/dL 50-199 HDL Cholesterol 44 mg/dL 29-67 LDL 71 mg/dL 20-129 Triglycerides 109 mg/dL 30-249 VLDL Cholesterol 22 mg/dL LDL Cholesterol Profile 07/20/2009 N2N/CCD Import Cholesterol 148 mg/dL 120-200 HDL Cholesterol 40 mg/dL 32-96 LDL-Cholesterol 84 mg/dL 62-185 Triglycerides 118 mg/dL 0-210 Laboratory test finding 07/20/2009 N2N/CCD Import Anion Gap 11 mEq/L 8- 16 BUN 15 mg/dL 5-23 BUN/Creat 16.6 Calcium 9.3 mg/dL 8.5-10.1 Carbon Dioxide 26 mEq/L 21-32 Chloride 104 mEq/L 98-107 Creatinine 0.9 mg/dL 0.5-1.4 Glom Filtration Rate, Estimate >60 mL/min >60 Glucose 156 mg/dL High 76-115 Hemoglobin A1c 7.6 % High 4.8-6.0 59 If >60 mL/min >60 60 Potassium 4.5 mEq/L 3.5-5.1 Prostate-Specific Antigen 0.5 ng/mL 0-4.0 61 SGPT/Alt 54 U/L 30-65 62 Sgot/Ast 23 U/L 16-40 63 Sodium 136 mEq/L 136-145 Laboratory test 01/19/2009 N2N/CCD Import Absolute 0.113 K/ul 0.0-0.3 finding Basophils Absolute Eosinophils 0.354 K/ul 0.0-0.5 Absolute Lymphocytes 2.26 K/ul 0.8-4.8 Absolute Monocytes 0.743 K/ul 0.1-1.0 Absolute Neutrophils 4.23 K/ul 2.05-7.63 Alt 44 U/L 21-72 Anion Gap 15 mmol/L 10-20 Ast 29 U/L 17-59 BUN 14 mg/dL 9-21 BUN/CR Ratio 16.8 Ratio 12-20 Basophil 1.5 % 0-2 Calcium 9.7 mg/dL 8.7-10.5 Carbon Dioxide 28 mmol/L 22-30 Chloride 104 mmol/L 98-107 Creatinine, Serum 0.9 mg/dL 0.8-1.5 Eosinophil 4.6 % High 0-4 Glucose 143 mg/dL High 75-110 Hematocrit 47.1 % 37.0-51.0 Hemoglobin 15.5 GM/dl 12.0-16.0 Hemoglobin A1c 6.9 % High 4.1-6.5 Lymphocytes 29.4 % 20-44 MCH 29.6 pg 26.0-32.0 MCHC 32.8 g/dL 31.0-36.0 MCV 90 FL 80-97 Monocytes 9.6 % 2-10.0 Neutrophils 54.9 % 50-70 Platelet Count 261 K/ul 140-440 Potassium 4.6 mmol/L 3.6-5.0 RBC 5.23 M/ul 4.2-6.3 RDW 13.2 % 11.5-14.5 Sodium 142 mmol/L 137-145 WBC 7.7 K/ul 4.1-10.9 Lipid Panel 01/19/2009 N2N/CCD Import Chol/HDL Ratio 3.4 64 Cholesterol 154 mg/dL 50-199 HDL Cholesterol 45 mg/dL 29-67 LDL 89 mg/dL 20-129 Triglycerides 101 mg/dL 30-249 VLDL Cholesterol 20 mg/dL Laboratory test 07/20/2008 N2N/CCD Import Absolute 0.134 K/ul 0.0-0.3 finding Basophils Absolute Eosinophils 0.309 K/ul 0.0-0.5 Absolute Lymphocytes 2.25 K/ul 0.8-4.8 Absolute Monocytes 0.892 K/ul 0.1-1.0 Absolute Neutrophils 5.02 K/ul 2.05-7.63 Alt 39 U/L 21-72 Anion Gap 13 mmol/L 10-20 Ast 26 U/L 17-59 BUN 15 mg/dL 9-21 BUN/CR Ratio 18.8 Ratio 12-20 Basophil 1.6 % 0-2 Calcium 10.3 mg/dL 8.7-10.5 Carbon Dioxide 27 mmol/L 22-30 Chloride 104 mmol/L 98-107 Creatinine, Serum 0.8 mg/dL 0.8-1.5 Eosinophil 3.6 % 0-4 Glucose 140 mg/dL High 75-110 Hematocrit 49.4 % 37.0-51.0 Hemoglobin 16.7 GM/dl High 12.0-16.0 Hemoglobin A1c 6.8 % High 4.1-6.5 Lymphocytes 26.1 % 20-44 MCH 29.5 pg 26.0-32.0 MCHC 33.8 g/dL 31.0-36.0 MCV 87 FL 80-97 Monocytes 10.4 % High 2-10.0 Neutrophils 58.4 % 50-70 Platelet Count 287 K/ul 140-440 Potassium 4.6 mmol/L 3.6-5.0 RBC 5.65 M/ul 4.2-6.3 RDW 12.3 % 11.5-14.5 Sodium 139 mmol/L 137-145 WBC 8.6 K/ul 4.1-10.9 Lipid Panel 07/20/2008 N2N/CCD Import Chol/HDL Ratio 3.9 65 Cholesterol 184 mg/dL 50-199 HDL Cholesterol 47 mg/dL 29-67 LDL 110 mg/dL 20-129 Triglycerides 133 mg/dL 30-249 VLDL Cholesterol 27 mg/dL Laboratory test finding 12/23/2007 N2N/CCD Import Alt 32 U/L 21-72 66 Anion Gap 14 mmol/L 10-20 Ast 25 U/L 17-59 BUN 15 mg/dL 9-21 BUN/CR Ratio 16.0 Ratio 12-20 Calcium 9.5 mg/dL 8.7-10.5 Carbon Dioxide 25 mmol/L 22-30 Chloride 104 mmol/L 98-107 Creatinine, Serum 1.0 mg/dL 0.8-1.5 Glucose 124 mg/dL High 75-110 Hemoglobin A1c 5.9 % 4.1-6.5 Potassium 4.5 mmol/L 3.6-5.0 Sodium 139 mmol/L 137-145 Lipid Panel 12/23/2007 N2N/CCD Import Chol/HDL Ratio 3.9 67 Cholesterol 160 mg/dL 50-199 HDL Cholesterol 41 mg/dL 29-67 LDL 93 mg/dL 20-129 Triglycerides 131 mg/dL 30-249 VLDL Cholesterol 26 mg/dL Laboratory test 06/30/2007 N2N/CCD Import Microalbumin,Urine 16.1 mg/L High 0.0-15.0 finding Microalbumin/Creatinine Ratio 5.9 ug/mgCrt 0.0-30.0 Urine Creatinine Conc 274 mg/dL Laboratory test 06/30/2007 N2N/CCD Import Absolute Basophils 0.07 K/ul 0.0-0.3 finding Absolute Eosinophils 0.24 K/ul 0.0-0.5 Absolute Lymphocytes 2.26 K/ul 0.8-4.8 Absolute Monocytes 0.62 K/ul 0.1-1.0 Absolute Neutrophils 4.19 K/ul 2.05-7.63 Anion Gap 16 mmol/L 10-20 BUN 15 mg/dL 9-21 BUN/CR Ratio 15.1 Ratio 12-20 Basophil 1.0 % 0-2 Calcium 9.8 mg/dL 8.7-10.5 Carbon Dioxide 26 mmol/L 22-30 Chloride 104 mmol/L 98-107 Creatinine, Serum 1.0 mg/dL 0.8-1.5 Eosinophil 3.3 % 0-4 Glucose 118 mg/dL High 75-110 Hematocrit 49.2 % 37.0-51.0 Hemoglobin 16.4 GM/dl High 12.0-16.0 Hemoglobin A1c 6.3 % 4.1-6.5 Lymphocytes 30.6 % 20-44 MCH 29.6 pg 26.0-32.0 MCHC 33.4 g/dL 31.0-36.0 MCV 89 FL 80-97 Monocytes 8.4 % 2-10.0 Neutrophils 56.7 % 50-70 PSA 0.53 ng/mL 0.00-4.00 Platelet Count 208 K/ul 140-440 Potassium 4.4 mmol/L 3.6-5.0 RBC 5.56 M/ul 4.2-6.3 RDW 11.9 % 11.5-14.5 Sodium 142 mmol/L 137-145 WBC 7.4 K/ul 4.1-10.9 Laboratory test 05/31/2007 N2N/[employer] Import Urine Amorph Small Negative finding Sediment Urine Bilirubin - Dipstick Small High Negative Urine Blood Trace Negative Urine Clarity Clear Clear Urine Color Yellow Yellow Urine Glucose - Dipstick Negative mg/dL Negative Urine Ketone Negative mg/dL Negative Urine Leuk Esterase Negative Negative Urine Mucus Moderate None Seen Urine Nitrite - Dipstick Negative Negative Urine PH 6.0 Low 6.5-7.5 Urine Protein - Dipstick Trace mg/dL Negative Urine RBC 0-2 rbc/hpf Negative Urine Screen DNR 68 Urine Specific Raven >=1.030 1.010-1.030 Urine Urobilinogen - Dipstick 0.2 E.U./dL 0.2-1.0 Urine WBC 0-2 wbc/hpf Negative Laboratory test finding 12/28/2006 N2N/CCD Import Alt 36 U/L 21-72 69 Anion Gap 15 mmol/L 10-20 Ast 25 U/L 17-59 BUN 13 mg/dL 9-21 BUN/CR Ratio 14.5 Ratio 12-20 Calcium 9.6 mg/dL 8.7-10.5 Carbon Dioxide 21 mmol/L Low 22-30 Chloride 107 mmol/L 98-107 Creatinine, Serum 0.9 mg/dL 0.8-1.5 Glucose 128 mg/dL High 75-110 Potassium 4.6 mmol/L 3.6-5.0 Sodium 139 mmol/L 137-145 Lipid Panel 12/28/2006 N2N/CCD Import Chol/HDL Ratio 3.5 70 Cholesterol 147 mg/dL 50-199 HDL Cholesterol 41 mg/dL 29-67 LDL 86 mg/dL 20-129 Triglycerides 102 mg/dL 30-249 VLDL Cholesterol 20 mg/dL Laboratory test 06/25/2006 N2N/CCD Import Hemoglobin A1c 6.4 % 4.1-6.5 finding Laboratory test 06/25/2006 N2N/[employer] Import Ferritin 114.0 ng/mL 5-244 finding Laboratory test 06/22/2006 N2N/[employer] Import Absolute Basophils 0.08 K/ul 0.0-0.3 finding Absolute Eosinophils 0.36 K/ul 0.0-0.5 Absolute Lymphocytes 2.19 K/ul 0.8-4.8 Absolute Monocytes 0.45 K/ul 0.1-1.0 Absolute Neutrophils 3.54 K/ul 2.05-7.63 Alt 43 U/L 21-72 Anion Gap 15 mmol/L 10-20 Ast 26 U/L 17-59 BUN 14 mg/dL 9-21 BUN/CR Ratio 14.0 Ratio 12-20 Basophil 1.2 % 0-2 Calcium 9.9 mg/dL 8.7-10.5 Carbon Dioxide 25 mmol/L 22-30 Chloride 107 mmol/L 98-107 Creatinine, Serum 1.0 mg/dL 0.8-1.5 Eosinophil 5.5 % High 0-4 Glucose 125 mg/dL High 75-110 Hematocrit 49.0 % 37.0-51.0 Hemoglobin 16.2 GM/dl High 12.0-16.0 Lymphocytes 33.1 % 20-44 MCH 29.7 pg 26.0-32.0 MCHC 33.1 g/dL 31.0-36.0 MCV 90 FL 80-97 Monocytes 6.8 % 2-10.0 Neutrophils 53.4 % 50-70 Platelet Count 243 K/ul 140-440 Potassium 4.6 mmol/L 3.6-5.0 RBC 5.46 M/ul 4.2-6.3 RDW 11.7 % 11.5-14.5 Sodium 142 mmol/L 137-145 WBC 6.6 K/ul 4.1-10.9 Lipid Panel 06/22/2006 N2N/CCD Import Chol/HDL Ratio 3.6 71 Cholesterol 148 mg/dL 50-199 HDL Cholesterol 41 mg/dL 29-67 LDL 94 mg/dL 20-129 Triglycerides 66 mg/dL 30-249 VLDL Cholesterol 13 mg/dL Laboratory test finding 12/22/2005 N2N/CCD Import CK 89 U/L 26-190 Laboratory test finding 12/22/2005 N2N/CCD Import Alt 46 U/L 21-72 Anion Gap 15 mmol/L 10-20 Ast 25 U/L 17-59 BUN 14 mg/dL 9-21 BUN/CR Ratio 13.5 Ratio 12-20 Calcium 9.5 mg/dL 8.7-10.5 Carbon Dioxide 26 mmol/L 22-30 Chloride 104 mmol/L 98-107 Creatinine, Serum 1.0 mg/dL 0.8-1.5 Glucose 131 mg/dL High 75-110 Potassium 4.4 mmol/L 3.6-5.0 Sodium 141 mmol/L 137-145 Lipid Panel 12/22/2005 N2N/CCD Import Chol/HDL Ratio 3.45 72 Cholesterol 158 mg/dL 50-199 HDL Cholesterol 46 mg/dL 29-67 LDL 91 mg/dL 20-129 Triglycerides 106 mg/dL 30-249 VLDL Cholesterol 21 mg/dL [address] Ming 2 Updated reference range on new analyzer 3-2017 3 Updated reference range on new analyzer 4 Concerning GFR Guidelines: Normal function or mild renal disease, if clinically at risk: >/=60 mL/min Moderately decreased: 30-59 Severely decreased: 15-29 Renal failure: <15 Glomerular Filtration Rate (GFR) is estimated based on the MDRD equation, which assumes a steady state for creatinine as recommended by the National Kidney Disease Education Program in conjunction with the National Institutes of Health and the National Kidney Foundation. Clinical conditions in which it may be necessary to measure GFR by using clearance methods include extremes of age and body size, severe malnutrition or obesity, diseases of skeletal muscle, paraplegia or quadriplegia, vegetarian diet, rapidly changing kidney function, and calculation of the dose of potentially toxic drugs that are excreted by the kidneys. 5 Concerning GFR Guidelines for Americans: Normal function or mild renal disease, if clinically at risk: >/=60 mL/min Moderately decreased: 30-59 Severely decreased: 15-29 Renal failure: <15 6 Updated Reference Range 7 Per NCEP ATP III Guidelines: Results lower than 40 mg/dL are suggestive of increased risk for coronary artery disease. Results > or=to 60 mg/dL are considered a negative risk factor. 8 Per NCEP ATP III Guidelines: Normal Population <130 Patients with medical conditions: CHD/DM Optimal: <100 Borderline high: 130-159 High: 160-189 Very high: >189 9 Beginning 05/25/06 PSA values assayed at [facility] uses chemiluminescence methodology manufactured by [employer] for use on the DXI analyzer. Values obtained with different assay methods or kits can not be used interchangeably. Serum PSA measurement is not an absolute test for malignancy. The PSA value should be used in conjunction with information available from clinical evaluation and other diagnostic procedures. 10 Per NCEP ATP III Guidelines: Results lower than 40 mg/dL are suggestive of increased risk for coronary artery disease. Results > or=to 60 mg/dL are considered a negative risk factor. 11 Per NCEP ATP III Guidelines: Normal Population <130 Patients with medical conditions: CHD/DM Optimal: <100 Borderline high: 130-159 High: 160-189 Very high: >189 12 Updated reference range on new analyzer 13 Updated reference range on new analyzer 14 Concerning GFR Guidelines: Normal function or mild renal disease, if clinically at risk: >/=60 mL/min Moderately decreased: 30-59 Severely decreased: 15-29 Renal failure: <15 Glomerular Filtration Rate (GFR) is estimated based on the MDRD equation, which assumes a steady state for creatinine as recommended by the National Kidney Disease Education Program in conjunction with the National Institutes of Health and the National Kidney Foundation. Clinical conditions in which it may be necessary to measure GFR by using clearance methods include extremes of age and body size, severe malnutrition or obesity, diseases of skeletal muscle, paraplegia or quadriplegia, vegetarian diet, rapidly changing kidney function, and calculation of the dose of potentially toxic drugs that are excreted by the kidneys. 15 Concerning GFR Guidelines for Americans: Normal function or mild renal disease, if clinically at risk: >/=60 mL/min Moderately decreased: 30-59 Severely decreased: 15-29 Renal failure: <15 16 Updated Reference Range 17 Updated reference range on new analyzer 18 Updated reference range on new analyzer 19 Concerning GFR Guidelines for Americans: Normal function or mild renal disease, if clinically at risk: >/=60 mL/min Moderately decreased: 30-59 Severely decreased: 15-29 Renal failure: <15 20 Concerning GFR Guidelines: Normal function or mild renal disease, if clinically at risk: >/=60 mL/min Moderately decreased: 30-59 Severely decreased: 15-29 Renal failure: <15 Glomerular Filtration Rate (GFR) is estimated based on the MDRD equation, which assumes a steady state for creatinine as recommended by the National Kidney Disease Education Program in conjunction with the National Institutes of Health and the National Kidney Foundation. Clinical conditions in which it may be necessary to measure GFR by using clearance methods include extremes of age and body size, severe malnutrition or obesity, diseases of skeletal muscle, paraplegia or quadriplegia, vegetarian diet, rapidly changing kidney function, and calculation of the dose of potentially toxic drugs that are excreted by the kidneys. 21 Updated reference range on new analyzer 22 Fastin hours 23 Updated reference range on new analyzer 24 Updated reference range on new analyzer 25 Concerning GFR Guidelines: Normal function or mild renal disease, if clinically at risk: >/=60 mL/min Moderately decreased: 30-59 Severely decreased: 15-29 Renal failure: <15 Glomerular Filtration Rate (GFR) is estimated based on the MDRD equation, which assumes a steady state for creatinine as recommended by the National Kidney Disease Education Program in conjunction with the National Institutes of Health and the National Kidney Foundation. Clinical conditions in which it may be necessary to measure GFR by using clearance methods include extremes of age and body size, severe malnutrition or obesity, diseases of skeletal muscle, paraplegia or quadriplegia, vegetarian diet, rapidly changing kidney function, and calculation of the dose of potentially toxic drugs that are excreted by the kidneys. 26 Concerning GFR Guidelines for Americans: Normal function or mild renal disease, if clinically at risk: >/=60 mL/min Moderately decreased: 30-59 Severely decreased: 15-29 Renal failure: <15 27 Updated reference range on new analyzer 28 Per NCEP ATP III Guidelines: Results lower than 40 mg/dL are suggestive of increased risk for coronary artery disease. Results > or=to 60 mg/dL are considered a negative risk factor. 29 Per NCEP ATP III Guidelines: Normal Population <130 Patients with medical conditions: CHD/DM Optimal: <100 Borderline high: 130-159 High: 160-189 Very high: >189 30 Beginning 05/25/06 PSA values assayed at [facility] uses chemiluminescence methodology manufactured by [employer] for use on the DXI analyzer. Values obtained with different assay methods or kits can not be used interchangeably. Serum PSA measurement is not an absolute test for malignancy. The PSA value should be used in conjunction with information available from clinical evaluation and other diagnostic procedures. 31 Concerning GFR Guidelines for Americans: Normal function or mild renal disease, if clinically at risk: >/=60 mL/min Moderately decreased: 30-59 Severely decreased: 15-29 Renal failure: <15 32 Concerning GFR Guidelines: Normal function or mild renal disease, if clinically at risk: >/=60 mL/min Moderately decreased: 30-59 Severely decreased: 15-29 Renal failure: <15 Glomerular Filtration Rate (GFR) is estimated based on the MDRD equation, which assumes a steady state for creatinine as recommended by the National Kidney Disease Education Program in conjunction with the National Institutes of Health and the National Kidney Foundation. Clinical conditions in which it may be necessary to measure GFR by using clearance methods include extremes of age and body size, severe malnutrition or obesity, diseases of skeletal muscle, paraplegia or quadriplegia, vegetarian diet, rapidly changing kidney function, and calculation of the dose of potentially toxic drugs that are excreted by the kidneys. 33 Concerning GFR Guidelines: Normal function or mild renal disease, if clinically at risk: >/=60 mL/min Moderately decreased: 30-59 Severely decreased: 15-29 Renal failure: <15 Glomerular Filtration Rate (GFR) is estimated based on the MDRD equation, which assumes a steady state for creatinine as recommended by the National Kidney Disease Education Program in conjunction with the National Institutes of Health and the National Kidney Foundation. Clinical conditions in which it may be necessary to measure GFR by using clearance methods include extremes of age and body size, severe malnutrition or obesity, diseases of skeletal muscle, paraplegia or quadriplegia, vegetarian diet, rapidly changing kidney function, and calculation of the dose of potentially toxic drugs that are excreted by the kidneys. 34 Concerning GFR Guidelines for Americans: Normal function or mild renal disease, if clinically at risk: >/=60 mL/min Moderately decreased: 30-59 Severely decreased: 15-29 Renal failure: <15 35 Per NCEP ATP III Guidelines: Results lower than 40 mg/dL are suggestive of increased risk for coronary artery disease. Results > or=to 60 mg/dL are considered a negative risk factor. 36 Per NCEP ATP III Guidelines: Normal Population <130 Patients with medical conditions: CHD/DM Optimal: <100 Borderline high: 130-159 High: 160-189 Very high: >189 37 Beginning 05/25/06 PSA values assayed at [facility] uses chemiluminescence methodology manufactured by [employer] for use on the DXI analyzer. Values obtained with different assay methods or kits can not be used interchangeably. Serum PSA measurement is not an absolute test for malignancy. The PSA value should be used in conjunction with information available from clinical evaluation and other diagnostic procedures. 38 Concerning GFR Guidelines for Americans: Normal function or mild renal disease, if clinically at risk: >/=60 mL/min Moderately decreased: 30-59 Severely decreased: 15-29 Renal failure: <15 39 Concerning GFR Guidelines: Normal function or mild renal disease, if clinically at risk: >/=60 mL/min Moderately decreased: 30-59 Severely decreased: 15-29 Renal failure: <15 Glomerular Filtration Rate (GFR) is estimated based on the MDRD equation, which assumes a steady state for creatinine as recommended by the National Kidney Disease Education Program in conjunction with the National Institutes of Health and the National Kidney Foundation. Clinical conditions in which it may be necessary to measure GFR by using clearance methods include extremes of age and body size, severe malnutrition or obesity, diseases of skeletal muscle, paraplegia or quadriplegia, vegetarian diet, rapidly changing kidney function, and calculation of the dose of potentially toxic drugs that are excreted by the kidneys. 40 Concerning GFR Guidelines: Normal function or mild renal disease, if clinically at risk: >/=60 mL/min Moderately decreased: 30-59 Severely decreased: 15-29 Renal failure: <15 Glomerular Filtration Rate (GFR) is estimated based on the MDRD equation, which assumes a steady state for creatinine as recommended by the National Kidney Disease Education Program in conjunction with the National Institutes of Health and the National Kidney Foundation. Clinical conditions in which it may be necessary to measure GFR by using clearance methods include extremes of age and body size, severe malnutrition or obesity, diseases of skeletal muscle, paraplegia or quadriplegia, vegetarian diet, rapidly changing kidney function, and calculation of the dose of potentially toxic drugs that are excreted by the kidneys. 41 Concerning GFR Guidelines for Americans: Normal function or mild renal disease, if clinically at risk: >/=60 mL/min Moderately decreased: 30-59 Severely decreased: 15-29 Renal failure: <15 42 Per NCEP ATP III Guidelines: Results lower than 40 mg/dL are suggestive of increased risk for coronary artery disease. Results > or=to 60 mg/dL are considered a negative risk factor. 43 Per NCEP ATP III Guidelines: Normal Population <130 Patients with medical conditions: CHD/DM Optimal: <100 Borderline high: 130-159 High: 160-189 Very high: >189 44 For -[place] patients multiply result by 1.[address] emiliano Simon Fax [address] emiliano Simon Fax FAXED PER REQUEST - @ 7049 12/15/11,([email or web address].KLS) [address] emiliano Simon Fax [phone] FAXED PER REQUEST - @ 41412/15/11,([email or web address].KLS) 48 < 5%=non AMI 5 - 10%=borderline for AMI > 10%=positive for AMI FOR DIAGNOSTIC PURPOSES, THE CK-MB RESULT (MASS AND RELATIVE PERCENT INDEX) SHOULD BE USED IN CONJUNCTION WITH OTHER PERTINENT CLINICAL DATA. 49 Normal Range: Male: <4.98 Female: <4.45 50 FASTING draw 1 week prior to next visit 51 Normal Range: Male: <4.98 Female: <4.45 52 FASTING schedule 1 week prior to next visit 53 FASTING schedule 1 week prior to next visit QUERY: Is the Patient Fasting? Y 54 FASTING schedule 1 week prior to next visit QUERY: Is the Patient Fasting? Y 55 Normal Range: Male: <4.98 Female: <4.45 56 FASTING 57 Normal Range: Male: <4.98 Female: <4.45 58 Normal Range: Male: <4.98 Female: <4.45 59 Current guidelines recommend a treatment goal of <7% for diabetic patients. This method will measure glycosylated hemoglobin variants, HbS, HbG, HbH, HbWayne , HbC, HbE, etc. Other hemoglobin- opathies may give incorrect results with this test. Note change in expected values for healthy individuals 60 Note: Persistent reduction for 3 months or more in an eGFR <60 mL/min/1.73 m2 defines CKD. Patients with eGFR values >/=60 mL/min/1.73 m2 may also have CKD if evidence of persistent proteinuria is present. The original MDRD equation for estimated GFR is not valid for patients less than 18 years of age. Additional information may be found at www.kdoqi.org. 61 THIS ASSAY IS NOT INTENDED A CANCER SCREENING TEST. *Total_PSA methodology [employer]-MEIA, standardized to WHO 1st IS for PSA 96/670 The concentration of PSA in a given specimen, determined with assays from different manufacturers, can vary due to differences in assay methods and reagent specificity. Values obtained from different assay methods cannot be used interchangeably. 62 FASTING 63 FASTING 64 Normal Range: Male: <4.98 Female: <4.45 65 Normal Range: Male: <4.98 Female: <4.45 66 FASTING schedule 1 week prior to next visit 67 Normal Range: Male: <4.98 Female: <4.45 68 05/31/07 LAB.[email or web address] Deleted by [email or web address] 69 FASTING 70 Normal Range: Male: <4.98 Female: <4.45 71 Normal Range: Male: <4.98 Female: <4.45 72 Normal Range: Male: <4.98 Female: <4.45 Procedures Date Code Description Status 02/16/2018 03105 Electrocardiogram Complete Completed Encounters Type Date Location Provider Dx Diagnosis Office Visit 07/23/2017 [facility] Sabino Robert DO E11.9 Type 2 diabetes 8:00a mellitus without complications I10 Essential (primary) hypertension E78.2 Mixed hyperlipidemia F17.210 Nicotine dependence, cigarettes, uncomplicated M17.10 Unilateral primary osteoarthritis, unspecified knee E66.09 Other obesity due to excess calories H91.8x3 Other specified hearing loss, bilateral N52.9 Male erectile dysfunction, unspecified Z12.5 Encounter for screening for malignant neoplasm of prostate Z23 Encounter for immunization Z68.35 Body mass index (BMI) 35.0-35.9, adult Office Visit 01/22/2017 8:00a [facility] Sabino Robert DO E11.9 Type 2 diabetes mellitus without complications I10 Essential (primary) hypertension E78.2 Mixed hyperlipidemia F17.210 Nicotine dependence, cigarettes, uncomplicated M17.10 Unilateral primary osteoarthritis, unspecified knee E66.09 Other obesity due to excess calories H91.8x3 Other specified hearing loss, bilateral N52.9 Male erectile dysfunction, unspecified Office Visit 07/23/2016 8:00a [facility] Sabino Robert DO E11.9 Type 2 diabetes mellitus without complications I10 Essential (primary) hypertension E78.2 Mixed hyperlipidemia F17.210 Nicotine dependence, cigarettes, uncomplicated M17.10 Unilateral primary osteoarthritis, unspecified knee E66.09 Other obesity due to excess calories H91.8x3 Other specified hearing loss, bilateral N52.9 Male erectile dysfunction, unspecified Z12.5 Encounter for screening for malignant neoplasm of prostate Office Visit 01/23/2016 8:00a [facility] Sabino Robert DO E11.9 Type 2 diabetes mellitus without complications I10 Essential (primary) hypertension E78.2 Mixed hyperlipidemia F17.210 Nicotine dependence, cigarettes, uncomplicated M17.10 Unilateral primary osteoarthritis, unspecified knee F43.21 Adjustment disorder with depressed mood E66.09 Other obesity due to excess calories H91.8x3 Other specified hearing loss, bilateral N52.9 Male erectile dysfunction, unspecified Office Visit 06/22/2015 8:15a [facility] Sabino Robert DO E11.9 Type 2 diabetes mellitus without complications I10 Essential (primary) hypertension E78.2 Mixed hyperlipidemia F17.210 Nicotine dependence, cigarettes, uncomplicated M17.10 Unilateral primary osteoarthritis, unspecified knee F43.21 Adjustment disorder with depressed mood E66.09 Other obesity due to excess calories H91.8x3 Other specified hearing loss, bilateral Office Visit 01/17/2015 8:00a [facility] Sabino Robert DO E11.9 Type 2 diabetes mellitus without complications I10 Essential (primary) hypertension E78.2 Mixed hyperlipidemia F17.210 Nicotine dependence, cigarettes, uncomplicated M17.10 Unilateral primary osteoarthritis, unspecified knee F43.21 Adjustment disorder with depressed mood E66.09 Other obesity due to excess calories H91.8x3 Other specified hearing loss, bilateral Z12.5 Encounter for screening for malignant neoplasm of prostate Office Visit 10/04/2014 8:15a [facility] Sabino Robert DO 250.00 Diabetes Mellitus W/O Compl Type II Or Unspec Controlled 401.1 Hypertension Benign 272.2 Hyperlipidemia Mixed 305.1 Tobacco Use Disorder 715.16 Osteoarthrosis Localized Prim Lower Leg 309.0 Adjustment Disorder With Depression 278.00 Obesity Unspec 389.8 Hearing Loss Other Spec Forms Office Visit 07/11/2014 9:00a [facility] Sabino Robert DO V73.89 Screening Examination Viral Diseases Other Spec V73.99 Screening Examination Viral Disease Unspec 250.00 Diabetes Mellitus W/O Compl Type II Or Unspec Controlled 401.1 Hypertension Benign 272.2 Hyperlipidemia Mixed 305.1 Tobacco Use Disorder 715.16 Osteoarthrosis Localized Prim Lower Leg 309.0 Adjustment Disorder With Depression 278.00 Obesity Unspec 389.8 Hearing Loss Other Spec Forms V74.5 Screening Examination Venereal Disease Plan of Treatment Future Appointment(s):06/28/2018 8:00 am - Sabino Robert DO at [facility]02/16/2018 - Sabino Robert DOZ01.810 Encounter for preprocedural cardiovascular lsefxfuxpriP61.12 Unilateral primary osteoarthritis, LEFT kneeE11.9 Type 2 diabetes mellitus without complicationsFollow up:Get blood work done today. Follow up in 6 months.I10 Essential (primary) brhjvgbzpusyT15.2 Mixed abixcbwdnwxdrnN33.210 Nicotine dependence, cigarettes, natihufsttdrpI68.09 Other obesity due to excess zpqiprpiW56.8x3 Other specified hearing loss, hoifdjmvoL93.9 Male erectile dysfunction, nmpfnphqrlbY51.34 Body mass index (BMI ) 34.0-34.9, adult
--- OUTSIDE RECORDS SUMMARY | 2018-03-04 05:38 | XMS REPORT | Continuity of Care Document ---
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 Payers Type Date Identification Numbers Payment Provider Subscriber Policy Number: [id number] [facility] Ppo Roger Dale PayID: [id number] [address] [address] [place] [address] Advance Directives Description No Information Available Problems [...] Tablets 100mg 18tabs 1/2 To 1 By Jakob, 2015 Mouth Every Sabino, Day as DO [...] 1 by mouth 305.1 Robert, ER (SR) 2014 - 12HR twice a day Sabino 2014 Atenolol 06/11/ Hx Tablets 50mg 90tabs Take 1 Jakob, 2014 - Tablet By Sabino 12/29/ Mouth Every DO 2016 Day Viagra 08/15/ Hx Tablets 50mg 18tabs 1 by mouth Jakob 2007 - as needed Sabino 2015 Fluocinonide-E / Hx Cream 0.05% 30unit Use bid prn Seven, 0000 - s Rash Waldemar 07/11/ 2014 Immunizations CPT Code Status Date Vaccine Lot # [id number] Given 07/23/2017 Tdap (Adacel) Ages 7 And Above Only [id number] Refused 02/16/2018 Afluria Or Fluvirin Flu Vac [...] Date Facility Test Result H/L Range Note Laboratory test 02/16/2018 [facility] Hemoglobin A1c <pending> 1 finding CBC with Auto 02/16/2018 [facility] WBC 8.2 K/uL 4.1-11.0 Diff-fcmg RBC 5.33 M/uL 4.60-6.10 Hemoglobin 16.6 gm/dL [...] 16 U/L 8-42 Laboratory test finding 07/23/2017 [facility] PSA 0.590 ng/mL 0.000-4.000 9 Lipid Treatment [...] Basophils 0.0 K/uL 0.0-0.3 Hemoglobin A1c 07/23/2017 [facility] Hemoglobin A1c 7.3 % High 4.1-5.9 Estimated Average Glucose Calc 163 mg/dL High 71-140 Hemoglobin A1c 01/22/2017 [facility] Hemoglobin A1c 7.4 % High 4.1-5.9 Estimated Average Glucose Calc 166 High 71-140 [facility] S[facility] 140 mmol/L 135- 146 17 Potassium [...] BUN 18 mg/dL 6-26 Hemoglobin A1c 07/23/2016 [facility] Hemoglobin A1c 7.3 % High 4.1-5.9 22 Estimated Average Glucose Calc 163 High 71-140 CBC With Auto Diff 07/23/2016 [facility] WBC 6.7 K/uL 4.1-11.0 RBC 5.35 M/uL [...] 122 mg/dL High 70-105 BUN 11 mg/dL 6- Creatinine 0.9 mg/dL 0.5-1.4 Calcium 9.7 mg/dL 8.5-10.2 Anion Gap 11 mmol/L 6-14 Non Isa Egfr >60 >60 33 Isa [...] 13 U/L 8-42 Anion Gap 11 mmol/L 6-14 Isa Egfr >60 >60 38 Non Isa [...] 0.0-4.0 % Lymph 26 % 20-44 % Ashe 9.4 % 2.0-10.0 % Jerel 59 % 50-70 Absolute Baso. 0.1 K/ul 0.0-0.3 Absolute Eos. 0.3 K/ul 0.0-0.5 Absolute Lymph. 1.7 K/ul 0.8-4.8 Absolute Ashe. 0.6 K/ul 0.1-1.0 Absolute Jerel. 4.01 K/ul [...] 0.0-4.0 % Lymph 26 % 20-44 % Ashe 8.4 % 2.0-10.0 % Jerel 61 % 50-70 A/G Ratio 1.8 ratio 1.6-2.2 Absolute Baso. 0.1 K/ul 0.0-0.3 Absolute Eos. 0.2 K/ul 0.0-0.5 Absolute Lymph. 2.1 K/ul 0.8-4.8 Absolute Ashe. 0.7 K/ul 0.1-1.0 Absolute Jerel. 4.93 K/ul [...] 0.0-4.0 % Lymph 28 % 20-44 % Ashe 9.3 % 2.0-10.0 % Jerel 57 % 50-70 Absolute Baso. 0.2 K/ul 0.0-0.3 Absolute Eos. 0.3 K/ul 0.0-0.5 Absolute Lymph. 2.2 K/ul 0.8-4.8 Absolute Ashe. 0.7 K/ul 0.1-1.0 Absolute Jerel. 4.62 K/ul [...] VLDL Cholesterol 19 mg/dL Lipid Panel 07/23/2011 [facility] Chol/HDL Ratio 3.0 50, 51 Cholesterol 140 mg/dL 50-199 HDL Cholesterol 46 mg/dL 29-67 LDL 70 mg/dL 20-129 Triglycerides 118 mg/dL 30-249 VLDL Cholesterol 24 mg/dL Laboratory test finding 07/23/2011 [facility] Alt 35 U/L 21-72 Anion Gap 17 mmol/L 10-20 Ast 21 U/L 17-59 BUN 10 mg/dL 9-21 BUN/CR Ratio 12.6 Ratio 12-20 Calcium 9.8 mg/dL 8.7-10.5 Carbon Dioxide 25 mmol/L 22-30 Chloride 103 mmol/L 98-107 Creatinine, Serum 0.8 mg/dL 0.8-1.5 Glucose 103 mg/dL 75-110 Hemoglobin A1c 6.3 % 4.1-6.5 Potassium 4.2 mmol/L 3.6-5.0 Sodium 140 mmol/L 137-145 Laboratory test finding 01/20/2011 [facility] Alt 40 U/L -72 52 Anion [...] 363 g/dL 245-419 54 Lipid Panel 01/20/2011 [facility] Chol/HDL Ratio 3.2 55 Cholesterol 141 mg/dL 50-199 HDL Cholesterol 44 mg/dL 29-67 LDL 77 mg/dL 20-129 Triglycerides 99 mg/dL 30-249 VLDL Cholesterol 20 mg/dL Laboratory test finding 07/15/2010 [facility] 32 U/L -72 56 Anion [...] VLDL Cholesterol 26 mg/dL Laboratory test 06/30/2007 [facility] Microalbumin,Urine 16.1 mg/L High 0.0-15.0 finding Microalbumin/Creatinine Ratio 5.9 ug/mgCrt 0.0-30.0 Urine Creatinine Conc 274 mg/dL Laboratory test 06/30/2007 [facility] Absolute Basophils 0.07 K/ul 0.0-0.3 finding [...] WBC 7.4 K/ul 4.1-10.9 Laboratory test 05/31/2007 [facility] Urine Amorph Small Negative finding Sediment [...] Negative Urine Screen DNR 68 Urine Specific [place] >=1.030 1.010-1.030 Urine Urobilinogen - Dipstick 0.2 E.U./dL 0.2-1.0 Urine WBC 0-2 wbc/hpf Negative Laboratory test finding 12/28/2006 [facility] 36 U/L 21-72 69 Anion Gap 15 mmol/L 10-20 Ast 25 U/L 17-59 BUN 13 mg/dL 9-21 BUN/CR Ratio 14.5 Ratio 12-20 Calcium 9.6 mg/dL 8.7-10.5 Carbon Dioxide 21 mmol/L Low 22-30 Chloride 107 mmol/L 98-107 Creatinine, Serum 0.9 mg/dL 0.8-1.5 Glucose 128 mg/dL High 75-110 Potassium 4.6 mmol/L 3.6-5.0 Sodium 139 mmol/L 137-145 Lipid Panel 12/28/2006 [facility] Chol/HDL Ratio 3.5 70 Cholesterol 147 mg/dL 50-199 HDL Cholesterol 41 mg/dL 29-67 LDL 86 mg/dL 20-129 Triglycerides 102 mg/dL 30-249 VLDL Cholesterol 20 mg/dL Laboratory test 06/25/2006 [facility] Hemoglobin A1c 6.4 % 4.1-6.5 finding Laboratory test 06/25/2006 [facility] Ferritin 114.0 ng/mL 5-244 finding Laboratory test 06/22/2006 [facility] Absolute Basophils 0.08 K/ul 0.0-0.3 finding [...] 21 mg/dL [address] Lai 2 Updated reference range on new analyzer 3 Updated reference range on new analyzer [...] 9 Beginning 05/25/06 PSA values assayed at [facility] uses chemiluminescence methodology manufactured by [email or web address] for use on the DXI analyzer. Values [...] 30 Beginning 05/25/06 PSA values assayed at [facility] uses chemiluminescence methodology manufactured by [email or web address] for use on the DXI analyzer. Values [...] 37 Beginning 05/25/06 PSA values assayed at [facility] uses chemiluminescence methodology manufactured by [email or web address] for use on the DXI analyzer. Values [...] High: 160-189 Very high: >189 44 For -Martiniquais patients multiply result by 1.[address] emiliano Simon Fax [address] emiliano Simon Fax FAXED PER REQUEST - @ 3309 12/15/11,(LAB.KLS) [address] emiliano Simon Fax [phone] FAXED PER REQUEST - @ 7531 12/15/11,(LAB.KLS) 48 < 5%=non AMI 5 - 10%=borderline [...] <4.45 Procedures Date Code Description Status 02/16/2018 30028 Electrocardiogram Complete Completed Encounters Type Date Location Provider Dx Diagnosis Office Visit 07/23/2017 [facility] Sabino Robert DO E11.9 Type 2 [...] (BMI) 35.0-35.9, adult Office Visit 01/22/2017 8:00a [facility] Sabino Robert DO E11.9 Type 2 diabetes mellitus without complications I10 Essential (primary) hypertension E78.2 Mixed hyperlipidemia F17.210 Nicotine dependence, cigarettes, uncomplicated M17.10 Unilateral primary osteoarthritis, unspecified knee E66.09 Other obesity due to excess calories H91.8x3 Other specified hearing loss, bilateral N52.9 Male erectile dysfunction, unspecified Office Visit 07/23/2016 8:00a [facility] Sabino Robert DO E11.9 Type 2 diabetes mellitus without complications I10 Essential (primary) hypertension E78.2 Mixed hyperlipidemia F17.210 Nicotine dependence, cigarettes, uncomplicated M17.10 Unilateral primary osteoarthritis, unspecified knee E66.09 Other obesity due to excess calories H91.8x3 Other specified hearing loss, bilateral N52.9 Male erectile dysfunction, unspecified Z12.5 Encounter for screening for malignant neoplasm of prostate Office Visit 01/23/2016 8:00a [facility] Sabino Robert DO E11.9 Type 2 diabetes mellitus without complications I10 Essential (primary) hypertension E78.2 Mixed hyperlipidemia F17.210 Nicotine dependence, cigarettes, uncomplicated M17.10 Unilateral primary osteoarthritis, unspecified knee F43.21 Adjustment disorder with depressed mood E66.09 Other obesity due to excess calories H91.8x3 Other specified hearing loss, bilateral N52.9 Male erectile dysfunction, unspecified Office Visit 06/22/2015 8:15a [facility] Sabino Robert DO E11.9 Type 2 diabetes mellitus without complications I10 Essential (primary) hypertension E78.2 Mixed hyperlipidemia F17.210 Nicotine dependence, cigarettes, uncomplicated M17.10 Unilateral primary osteoarthritis, unspecified knee F43.21 Adjustment disorder with depressed mood E66.09 Other obesity due to excess calories H91.8x3 Other specified hearing loss, bilateral Office Visit 01/17/2015 8:00a [facility] Sabino Robert DO E11.9 Type 2 diabetes mellitus without complications I10 Essential (primary) hypertension E78.2 Mixed hyperlipidemia F17.210 Nicotine dependence, cigarettes, uncomplicated M17.10 Unilateral primary osteoarthritis, unspecified knee F43.21 Adjustment disorder with depressed mood E66.09 Other obesity due to excess calories H91.8x3 Other specified hearing loss, bilateral Z12.5 Encounter for screening for malignant neoplasm of prostate Office Visit 10/04/2014 8:15a [facility] Sabino Robert DO 250.00 Diabetes Mellitus W/O Compl Type II Or Unspec Controlled 401.1 Hypertension Benign 272.2 Hyperlipidemia Mixed 305.1 Tobacco Use Disorder 715.16 Osteoarthrosis Localized Prim Lower Leg 309.0 Adjustment Disorder With Depression 278.00 Obesity Unspec 389.8 Hearing Loss Other Spec Forms Office Visit 07/11/2014 9:00a [facility] Sabino Robert DO V73.89 Screening Examination [...] 8:00 am - Sabino Robert DO at [facility]02/16/2018 - Sabino Robert DOZ01.810 Encounter for preprocedural cardiovascular gggewiebpecS56.12 Unilateral primary osteoarthritis, LEFT kneeE11.9 Type 2 diabetes mellitus without complicationsFollow up:Get blood work done today. Follow up in 6 months.I10 Essential (primary) pbghuqujxfaqL90.2 Mixed mmiebgynujabqaT07.210 Nicotine dependence, cigarettes, urzuyztwtkhymA69.09 Other obesity due to excess wkoxorwjE35.8x3 Other specified hearing loss, skzioywvwM40.9 Male erectile dysfunction, aaykcunmacqK93.34 Body mass index (BMI ) 34.0-34.9, adult
[2018-03-04] MEDS ORDERED: celeCOXIB CAP* 200 MG PO ONE (06:00)
[2018-03-04] MEDS ORDERED: Gabapentin CAP(*) 300 MG PO ONE (06:00)
[2018-03-04] MEDS ORDERED: Acetaminophen TAB* 325 MG PO ONE (06:00)
[2018-03-04] MEDS ORDERED: Famotidine IV* 10 MG/ML 2 ML (20 mg) IV ONE (06:00)
[2018-03-04] MEDS ORDERED: Gabapentin CAP(*) 300 MG ONE (06:17)
[2018-03-04] MEDS ORDERED: celeCOXIB CAP* 100 MG ONE (06:17)
[2018-03-04] MEDS ORDERED: ceFAZolin 2 GM PREMIX in ORs 2 GM/50 ML BAG IVPB ONE (06:17)
[2018-03-04] MEDS ORDERED: Famotidine IV* 10 MG/ML 2 ML (20 mg) ONE (06:17)
[2018-03-04] MEDS ORDERED: Acetaminophen TAB* 325 MG ONE (06:17)
[2018-03-04] MEDS ORDERED: fentaNYL* 50 MCG/ML 2 ML VIAL (100 MCG VIAL) ONE ×4 (06:46→09:16)
[2018-03-04] MEDS ORDERED: Ondansetron INJ* 2 MG/ML VIAL ONE (06:46)
[2018-03-04] MEDS ORDERED: Bupivacaine 0.5% SDV PF* 30ML VIAL ONE (06:46)
[2018-03-04] MEDS ORDERED: Midazolam* 1 MG/ML 10 ML VIAL (10 MG) ONE (06:46)
[2018-03-04] MEDS ORDERED: Dexamethasone IV* 4 MG/ML 1 ML (4 MG) ONE (06:46)
[2018-03-04] MEDS ORDERED: ROPIVACAINE 5 MG/ML 30 ML BTL (0.5%) ONE (06:46)
[2018-03-04] MEDS ORDERED: KETAMINE HCL* 50 MG/ML 10 ML VIAL ONE (06:46)
[2018-03-04] MEDS ORDERED: Lidocaine 2% PF * 5 ML VIAL ONE (06:46)
[2018-03-04] MEDS ORDERED: Propofol* 10 MG/ML 20 ML BTL ONE (06:46)
[2018-03-04] MEDS ORDERED: Phenylephrine INJ* 10 MG/ML 1 ML VIAL (10 MG) ONE (07:42)
[2018-03-04] MEDS ORDERED: Enoxaparin(*) 40 MG/0.4 ML SYR SUBCUT ONE (08:00)
[2018-03-04] MEDS ORDERED: Glycopyrrolate IV* 0.2 MG/ML 1 ML VIAL ONE (08:03)
[2018-03-04] MEDS ORDERED: fentaNYL* 50 MCG/ML 2 ML VIAL (100 MCG VIAL) IV PRN (08:58)
[2018-03-04] MEDS ORDERED: Naloxone* 0.4 MG/ML 1 ML VIAL IV PRN (08:58)
[2018-03-04] MEDS ORDERED: HYDROmorphone INJ1* 1 MG/ML SYRINGE IV PRN (08:58)
[2018-03-04] MEDS ORDERED: Ondansetron INJ* 2 MG/ML VIAL IV PRN ×2 (08:58→10:45)
[2018-03-04] MEDS ORDERED: HYDROmorphone INJ1* 1 MG/ML SYRINGE ONE ×2 (09:57→10:21)
[2018-03-04] MEDS ORDERED: oxyCODONE/Acetamin 5/325 MG* TAB PO PRN (10:45)
[2018-03-04] MEDS ORDERED: diPHENhydraMINE IV* 50 MG/ML 1 ml VIAL (BENADRYL) IV PRN (10:45)
[2018-03-04] MEDS ORDERED: Magnesium Hydroxide LIQ* 30 ML UDC PO PRN (10:45)
[2018-03-04] MEDS ORDERED: Cyclobenzaprine TAB* 10 MG PO PRN (10:45)
[2018-03-04] MEDS ORDERED: Bisacodyl SUPP* 10 MG SUPP PR PRN (10:45)
[2018-03-04] MEDS ORDERED: diPHENhydraMINE PO* 25 MG PO PRN (10:45)
[2018-03-04] MEDS ORDERED: traMADol TAB* 50 MG PO PRN (10:45)
[2018-03-04] MEDS ORDERED: Ondansetron TAB* 4 MG PO PRN (10:45)
[2018-03-04] MEDS ORDERED: Morphine VIAL* 4 MG/ML VIAL (1 ml vial) IV PRN (10:45)
[2018-03-04] MEDS ORDERED: Polyethylene Glycol 3350* 17 GM PACKET PO PRN (10:45)
[2018-03-04] MEDS ORDERED: Albuterol 2.5 MG/3 ML NEB.SOL* (0.083%) INH PRN (11:12)
[2018-03-04] MEDS ORDERED: Dextrose 50% Syringe 50 ML* 25 GM/50 ML SYRINGE IV PUSH PRN (11:12)
[2018-03-04] MEDS ORDERED: Albuterol 2.5 MG/3 ML NEB.SOL* (0.083%) INH ONE (11:28)
[2018-03-04] MEDS ORDERED: Insulin LISPRO* 1 UNITS UNIT SUBCUT ONE (12:20)
[2018-03-04] MEDS: Insulin LISPRO* 1 UNITS UNIT SUBCUT SCH ×2 (12:24→17:36)
[2018-03-04] MEDS: Albuterol/Ipratropium NEB.SOL* Albuterol 2.5 MG/Ipratropium 0.5 MG 3 ML INH SCH ×2 (12:33→15:56)
[2018-03-04] MEDS: oxyCODONE TAB* 5 MG TAB PO PRN ×3 (12:44→20:15)
--- NOTE | 2018-03-04 15:43 | PN ---
Progress Note - Progress Note Date of Service: 03/04/18 Note: resting comfortably OOB to chair. denies SOB/chest pain. dressing c/d/i; 2+DP pulse and intact sensation
[2018-03-04] MEDS: ceFAZolin 1 GM ADVAN(*) 1 GM in NS 0.9% 50 ML* 50 ML IVPB SCH (16:25)
[2018-03-04] MEDS: Acetaminophen TAB* 325 MG PO SCH ×2 (16:25→23:18)
--- NOTE | 2018-03-04 18:24 | CONS ---
CC: Dr. Robert; Dr. Lai.* CONSULTATION REPORT: DATE OF CONSULT: 03/04/18 PRIMARY CARE PROVIDER: Dr. Robert. ATTENDING PHYSICIAN WHILE IN THE HOSPITAL: Sue Brandt DO (report dictated by Bandar Zhang NP). REASON FOR MEDICAL CONSULTATION: Evaluation and medical management of comorbid medical problems. REQUESTING PHYSICIAN IN CONSULT: Dr. Lai. CHIEF COMPLAINT: Left knee pain. HISTORY OF PRESENT ILLNESS: I refer you to Dr. Lai's H and P for further details. In short, Mr. Dale is a 62-year-old male patient. He has a history of diabetes, hypertension, obesity, hyperlipidemia, tobacco abuse, and degenerative joint disease who has been dealing with left knee pain for sometime. He has had 2 previous knee arthroscopies to this. He has failed conservative therapy. He sought care with Dr. Lai and he had gotten to the point it was felt that he would benefit from a total knee replacement of the left knee which he underwent today. He was evaluated in the PACU setting. His biggest complaint is that he feels like he has to urinate. He denies having any chest pain. He denies having any shortness of breath. He says his pain is well controlled in his left knee. He denies having any lightheadedness or dizziness. He says he does not feel short of breath. He denies feeling any numbness or tingling to the lower extremities. Because of his medical complexity , we were asked to evaluate in consult. PAST MEDICAL HISTORY: Significant for: 1. Diabetes. 2. Hypertension. 3. Hyperlipidemia. 4. Degenerative joint disease. PAST SURGICAL HISTORY: He has had a left knee arthroscopy x2 and now he had a left total knee replacement done today. MEDICATIONS: Home meds include: 1. Metformin 500 mg p.o. b.i.d. 2. Glipizide 5 mg daily. 3. Lopressor 50 mg p.o. b.i.d. 4. Lisinopril 2 tablets in the morning. 5. Atorvastatin 80 mg p.o. every other day. 6. Norvasc 5 mg daily. ALLERGIES TO MEDICATIONS: Include no known drug allergies. FAMILY HISTORY: His father has a history of pacemaker placement and mother has a history of arthritis; both he says are . SOCIAL HISTORY: He is a pack a day smoker. He occasionally drinks alcohol. Surrogate decision maker is his son. REVIEW OF SYSTEMS: There is no documented fever. He denied having any significant weight change. There is no double vision. He denies having any ear discharge. He denied having any rhinorrhea. There was no sore throat, there was no thyroid enlargement. He denies having any chest pain. There was no orthopnea. There was no nocturnal dyspnea. There was no rhinorrhea, no sore throat, no thyroid enlargement. He denied having any chest pain. There was no orthopnea, no nocturnal dyspnea. There is no abdominal pain. There is no nausea, no vomiting. There is no dysuria, no frequency, no seizure, no loss of consciousness, no pruritus, and no skin ulcerations. Review of 14 systems completed, all others negative. PHYSICAL EXAM: Vital Signs: Blood pressure 118/85, pulse 96, respirations were 18. His O2 saturation on room air dipped into 88% to 86%; on 2 L, he is now 93% to 94%. His temperature was 98.2. General: At this time, Mr. Dale is a 62-year- old male patient. He is sitting in the PACU bed, he does not appear to be in any acute distress. He appears to be well-nourished and well-developed. HEENT: Head atraumatic and normocephalic. Eyes: EOMs are intact. Sclerae anicteric and not pale. Neck was supple. Throat: Oral mucosa appears to be moist. No oropharyngeal erythema. Heart sounds: S1 and S2. Regular rate and rhythm. No murmurs, rubs, or gallops. Lungs: He did have expiratory wheezes in the upper lobes. He had equal diaphragmatic expansion. Abdomen was soft, it was flat and nontender. Bowel sounds were present. Extremities: Pulses were 2+ throughout. He was moving his upper extremities with 5/5 strength. Distal CSM checks are intact to the left lower extremity. Neurologically, he is awake, he is alert, he is oriented x3, he had no gross focal deficits. Skin: Intact; with the exception, he does have an incision noted to the left knee which is covered with an Dell dressing. It is clean, dry, and intact. DIAGNOSTIC STUDIES/LAB DATA: INR of 0.88, PTT of 29.7. He had preoperative UA which was negative. He had a CBC that showed a WBC of 8.2, RBC of 5.3, hemoglobin 16.6, and hematocrit of 48. Sodium 139, potassium was 4.9, chloride of 103, bicarb 27, glucose 133, BUN 11, creatinine of 0.8, calcium of 9.9. He had a preop EKG which did show a normal sinus rhythm, rate of [address] elevation or T-wave inversions noted. He did have a preop chest x-ray as well which showed no active cardiopulmonary disease. Old medical records reviewed. ASSESSMENT AND PLAN: Mr. Dale is a 62-year-old male patient, coming into orthopedic services today for an elective left total knee. We were asked to evaluate in consult due to his medical complexity and recommendations at this point are: 1. Stats post left total knee. I will defer the management to Dr. Lai and her team. 2. Hypoxia. Again on exam, he was wheezing. He may have a component of chronic obstructive pulmonary disease, although never official diagnosed. He is a smoker. I have placed him on nebs every 4 hours, p.r.n. albuterol. I touched base with Respiratory Therapy to implement aggressive pulmonary toileting and will try to wean him off his O2. We will continue to follow this closely. 3. Diabetes. He will be on a lispro sliding. 4. Hypertension. Blood pressure here postop again, last one was 150/90. We will follow this and we are restarting his home medications. 5. Hyperlipidemia. Continue statin therapy. 6. Degenerative joint disease. Follow with his PCP. 7. Obesity. Continue with lifestyle modifications. 8. DVT prophylaxis. He is on Eliquis. 9. Fluids, electrolytes, and nutrition. I would recommend a consistent carb diet. 10. Code status. Full code. TIME SPENT: Time spent on the consult was 60 minutes, greater than half the time was spent waow-ac-jqay with the patient obtaining my history and physical. Other half the time was spent going over the plan of care with the patient and implementing my plan of care. I did discuss the plan of care with my attending Dr. Brandt, she is in agreement. BANDAR ZHANG, RECREATIONAL THERAPIST [id number]/[facility] #: [id number] WIL[facility]
[2018-03-04] MEDS: Metoprolol Tartrate TAB* 50 mg PO SCH (20:14)
[2018-03-04] MEDS: Docusate CAP* 100 MG PO SCH (20:15)
[2018-03-04] MEDS: Magnesium Hydroxide LIQ* 30 ML UDC PO SCH (20:15)
[2018-03-04] MEDS ORDERED: metFORMIN* 500 MG TAB PO SCH (21:00)
[2018-03-04] MEDS: oxyCODONE/Acetamin 5/325 MG* TAB PO PRN (22:21)
[2018-03-05] MEDS: ceFAZolin 1 GM ADVAN(*) 1 GM in NS 0.9% 50 ML* 50 ML IVPB SCH ×2 (01:29→08:11)
[2018-03-05] MEDS: oxyCODONE TAB* 5 MG TAB PO PRN ×3 (03:23→12:06)
[2018-03-05 05:28] LABS: Hematocrit 38 % (42-52); Hemoglobin 12.7 g/dl (14.0-18.0); Platelet Count 175 10^3/ul (150-450)
[2018-03-05 05:37] LABS: INR 0.94 (0.77-1.02)
[2018-03-05 05:47] LABS: EGFR Non-African American 131.9 (>60)
[2018-03-05] MEDS: oxyCODONE/Acetamin 5/325 MG* TAB PO PRN ×3 (05:56→14:10)
[2018-03-05] MEDS: Acetaminophen TAB* 325 MG PO SCH ×2 (06:15→15:37)
[2018-03-05] MEDS ORDERED: Apixaban* 2.5 MG TAB PO SCH (08:00)
[2018-03-05] MEDS: Magnesium Hydroxide LIQ* 30 ML UDC PO SCH (08:11)
[2018-03-05] MEDS: Docusate CAP* 100 MG PO SCH (08:12)
[2018-03-05] MEDS: Metoprolol Tartrate TAB* 50 mg PO SCH (08:12)
[2018-03-05] MEDS: Insulin LISPRO* 1 UNITS UNIT SUBCUT SCH ×2 (08:13→12:14)
[2018-03-05] MEDS ORDERED: amLODIPine TAB* 5 MG PO SCH (09:00)
[2018-03-05] MEDS ORDERED: glipiZIDE TAB* 5 MG PO SCH (09:00)
[2018-03-05] MEDS ORDERED: Enoxaparin(*) 40 MG/0.4 ML SYR SUBCUT ONE (09:00)
[2018-03-05] MEDS ORDERED: Lisinopril TAB* 10 MG PO SCH (09:00)
--- NOTE | 2018-03-05 09:06 | OP ---
DATE OF OPERATION: 03/04/18 - ROOM #349 DATE OF : 57 SURGEON: Yessenia Lai MD. DRY CLEANING MANAGER: TOSIN Gold. Ms. Carrizales did help throughout the procedure with preparation of the leg, wound retraction, manipulation of the knee and wound closure. ANESTHESIOLOGIST: Dr. Villavicencio. ANESTHESIA: General. PRE-OP DIAGNOSIS: Severe endstage degenerative osteoarthritis of the left knee joint. POST-OP DIAGNOSIS: Severe endstage degenerative osteoarthritis of the left knee joint. OPERATIVE PROCEDURE: Left total knee arthroplasty. TOURNIQUET TIME: 75 minutes. COMPLICATIONS: None. ESTIMATED BLOOD LOSS: 200 cc. SPECIMEN: Bone and cartilage from the left knee joint sent to Pathology. HARDWARE USED: This is a cemented total knee arthroplasty hardware with two packages of Simplex bone cement. This is a Combs and NephEbix hardware. For the femur, a left Oxinium size 7 posterior stabilized Legion femoral component. For the tibial baseplate, a left Maya II size 7 tibial baseplate. For the insert, an 11 mm posterior stabilized articular insert, size 7/8. For the patella a 32 mm 3-peg all poly patella. BRIEF HISTORY/INDICATIONS: Mr. Dale is a 62-year-old gentleman with years of increasingly severe left knee pain. He failed conservative treatment with antiinflammatories, pain medications, intraarticular injections, and physical therapy. Radiograph showed bone and bone arthritis. Due to continued pain and decreased quality of life, he elected to undergo left total knee arthroplasty. Informed consent was obtained from the patient. He understood the risks of surgery included, but were not limited to bleeding, infection, damage to nearby structures, continued pain, need for further surgery, intraoperative fracture, nerve palsy, hardware failure or loosening, knee stiffness, loss of motion, stroke, heart attack, blood clot and . He wished to proceed. INTRAOPERATIVE FINDINGS: Intraoperatively, the patient was noted to have severe endstage arthritis with complete loss of cartilage in all 3 compartments. He had extensive osteophyte formation. He had a flexion contracture of 20 degrees at the start of the case. He was noted to have significantly sclerotic bone throughout the case. DESCRIPTION OF PROCEDURE: Mr. Dale was identified in the preanesthesia unit. His left lower extremity was marked as the correct operative side. Informed consent was signed and placed in the chart. The patient was taken to the operating room and placed under general anesthesia. A Fung catheter was placed. Tourniquet was placed on the left thigh. Left lower extremity was prepped and draped in the usual sterile fashion. A preop time-out was made to correctly identify the patient's side and site. Appropriate perioperative antibiotics were given within 1 hour of incision. Tourniquet was inflated and total tourniquet time for this procedure was 65 minutes. A midline incision was made with a 10 blade and carried down to the extensor mechanism. A new 10 blade was used to make a standard medial parapatellar arthrotomy. Patella was subluxed laterally. Electrocautery was used to subperiosteally elevate the soft tissue off the superomedial tibia. The knee was flexed up. The anterior horn of the lateral meniscus and ACL were sharply released. A drill was used to enter the distal femur. Intramedullary distal femoral cutting guide was pinned on the distal femur. An oscillating saw was used. The bone was noted to be quite sclerotic. Next, the external rotation guide was pinned on the distal femur and the distal femur was sized to a size 7. Size 7 multi-cutting jig was pinned on the distal femur. Oscillating saw was used to make the 4 chamfer cuts. The PCL was completely released. The tibia was subluxed anteriorly. Extramedullary tibial cutting guide was pinned on the proximal tibia. A proximal tibial cut was made with an oscillating saw perpendicular to the mechanical axis of the tibia. The bone was carefully removed. The knee was brought out into full extension. There was excellent medial and lateral ligament balancing with the knee in full extension. Flexion and extension gaps were well balanced. The knee was flexed up. Lamina spreaders were placed both medially and laterally and removed any remaining meniscus using electrocautery. Curved osteotome was used to remove posterior osteophytes. Tibial tray and drop blane were placed and once again confirmed a satisfactory tibial cut. A left size 7 femoral trial was impacted onto the distal femur and had excellent stability and fit. The box for the posterior stabilized implant was prepared using a reamer and box cut osteotome. A 7 tibial tray trial with an 11 mm insert trial was placed and the knee was taken through a range of motion. There was full extension to 130 degrees of flexion with satisfactory patellofemoral tracking. The patella was everted. 9 mm of patellar bone and cartilage were carefully removed using an oscillating saw. The patella was sized to a size 32. Three-peg holes were drilled through the size 32 guide. 32 trial patella was placed and the knee was taken through a range of motion. There was satisfactory patellofemoral tracking. All trials were removed. The tibia was subluxed anteriorly and sized to a size 7. Proximal tibia was prepared using a size 7 keel punch. All bony cut surfaces were copiously irrigated with sterile saline and dried. The final implants were cemented into place, starting with the tibia, followed by the femur and last the patella. An 11-mm insert trial was placed and the knee was brought out into full extension. The tourniquet was turned on at 65 minutes. The knee was copiously irrigated with sterile saline. Electrocautery was used to obtain meticulous hemostasis. Once the cement had fully cured, the insert trial was removed. Any excess cement was removed from around the capsule and hardware. Final insert chosen was an 11 mm posterior stabilized articular insert size 7/8. This was locked into position on the tibial tray without difficulty. Stability of the insert was checked and rechecked and noted to be stable. The knee was copiously irrigated with sterile saline. The extensor mechanism was closed using interrupted #1 Vicryl. The rest of the incisions was closed in a layered fashion using 0 and 2-0 Vicryl. The skin was closed using running 3-0 nylon suture. Sterile Xeroform, 4x4s and Webril were used to cover the incision. Dell wrap and cold pack were placed over this. The patient's anesthesia was reversed without difficulty. He was taken to the PACU in stable condition. Intended weightbearing will be weightbearing as tolerated. Intended DVT prophylaxis will be Coumadin with a Lovenox bridge. [id number]/[facility] #: [id number] WILIAN
--- NOTE | 2018-03-05 10:59 | PN ---
Subjective Date of Service: 03/05/18 Interval History: Patient resting comfortably in bed. Reports pain well controlled on current regimen. Was able to participate in PT this morning. Denies shortness of breath , chest pain, palpitations, abdominal pain. Tolerating diet without nausea/ vomiting. No headache or dizziness. No numbness or tingling in extremities. Objective Active Medications: Acetaminophen (Tylenol Tab*) 975 mg PO Q8H [facility] Last Admin: 03/05/18 06:15 Dose: Not Given Albuterol (Ventolin 2.5 Mg/3 Ml Neb.Anayeli*) 2.5 mg INH Q2H PRN PRN Reason: SOB/WHEEZING Last Admin: 03/04/18 11:28 Dose: 2.5 mg Amlodipine Besylate (Norvasc Tab*) 5 mg PO QAM [facility] Last Admin: 03/05/18 08:12 Dose: 5 mg Apixaban (Eliquis*) 2.5 mg PO BID [facility] Last Admin: 03/05/18 08:11 Dose: 2.5 mg Atorvastatin Calcium (Lipitor*) 80 mg PO EVERY OTHER DAY [facility] Bisacodyl (Dulcolax Supp*) 10 mg DC DAILY PRN PRN Reason: constipation Cyclobenzaprine HCl (Flexeril Tab*) 10 mg PO TID PRN PRN Reason: SPASMS Dextrose (D50w Syringe 50 Ml*) 12.5 gm IV PUSH .FOR FS < 60 - SS PRN PRN Reason: FS < 60 Diphenhydramine HCl (Benadryl Iv*) 12.5 mg IV Q6H PRN PRN Reason: PRURITIS Diphenhydramine HCl (Benadryl Po*) 25 mg PO Q6H PRN PRN Reason: itching Docusate Sodium (Colace Cap*) 100 mg PO BID [facility] Last Admin: 03/05/18 08:12 Dose: 100 mg Lactated Ringer's (Lactated Ringers 1000 Ml Bag*) 1,000 mls @ 100 mls/hr IV PER RATE [facility] Last Admin: 03/04/18 22:18 Dose: 100 mls/hr Insulin Human Lispro (Humalog*) 0 units SUBCUT AC [facility]; Protocol Last Admin: 03/05/18 08:13 Dose: 3 unit Lactulose (Lactulose*) 30 ml PO Q6H PRN PRN Reason: constipation Lisinopril (Prinivil Tab*) 20 mg PO QAM [facility] Last Admin: 03/05/18 08:12 Dose: 20 mg Magnesium Hydroxide (Milk Of Magnesia Liq*) 30 ml PO BID [facility] Last Admin: 03/05/18 08:11 Dose: 30 ml Magnesium Hydroxide (Milk Of Magnesia Liq*) 30 ml PO Q6H PRN PRN Reason: constipation Metoprolol Tartrate (Lopressor Tab*) 50 mg PO BID [facility] Last Admin: 03/05/18 08:12 Dose: 50 mg Morphine Sulfate (Morphine Vial*) 2 mg IV Q2H PRN PRN Reason: PAIN Ondansetron HCl (Zofran Inj*) 4 mg IV Q6H PRN PRN Reason: nausea Ondansetron HCl (Zofran Tab*) 4 mg PO Q6H PRN PRN Reason: NAUSEA Oxycodone HCl (Roxycodone Tab*) 10 mg PO Q4H PRN PRN Reason: SEVERE PAIN Last Admin: 03/05/18 08:12 Dose: 10 mg Oxycodone/Acetaminophen (Percocet 5/325 Tab*) 1 tab PO Q4H PRN PRN Reason: PAIN Oxycodone/Acetaminophen (Percocet 5/325 Tab*) 2 tab PO Q4H PRN PRN Reason: PAIN Last Admin: 03/05/18 10:11 Dose: 2 tab Polyethylene Glycol/Electrolytes (Miralax*) 17 gm PO DAILY PRN PRN Reason: Constipation Tramadol HCl (Ultram*) 50 mg PO Q6H PRN PRN Reason: PAIN Last Admin: 03/05/18 01:29 Dose: 50 mg Vital Signs - 8 hr 03/05/18 03/05/18 03/05/18 03:23 03:25 03:59 Temperature 98.3 F Pulse Rate 77 Respiratory 20 20 20 Rate Blood Pressure 108/69 (mmHg) O2 Sat by Pulse 98 Oximetry 03/05/18 03/05/18 03/05/18 05:50 05:56 07:46 Temperature 98.3 F Pulse Rate 86 Respiratory 18 20 16 Rate Blood Pressure 114/74 (mmHg) O2 Sat by Pulse 95 Oximetry 03/05/18 03/05/18 08:12 10:11 Temperature Pulse Rate Respiratory 16 20 Rate Blood Pressure (mmHg) O2 Sat by Pulse Oximetry Oxygen Devices in Use Now: None Eyes: No Scleral Icterus, PERRLA Ears/Nose/Mouth/Throat: NL Teeth, Lips, Gums, Mucous Membranes Moist Neck: NL Appearance and Movements; NL JVP, Trachea Midline Respiratory: Symmetrical Chest Expansion and Respiratory Effort, Clear to Auscultation Cardiovascular: NL Sounds; No Murmurs; No JVD, RRR, No Edema Abdominal: NL Sounds; No Tenderness; No Distention Skin: No Rash or Ulcers Neurological: Alert and Oriented x 3, NL Sensation, NL Muscle Strength and Tone , - - Able to dorsiflex and plantarflex. 2+ DP and PT pulses. Result Diagrams: 03/05/18 05:17 03/05/18 05:17 Assess/Plan/Problems-Billing Assessment: - Patient Problems (1) Status post left knee replacement Current Visit: Yes Status: Acute Code(s): Z96.652 - PRESENCE OF LEFT ARTIFICIAL KNEE JOINT SNOMED Code(s): 0211366962651 Comment: - Plan per primary team, ortho - PT/OT - Pain well controlled on current regimen - Trend H/H - Anticoagulated with eliquis (2) Diabetes Current Visit: Yes Status: Acute Code(s): E11.9 - TYPE 2 DIABETES MELLITUS WITHOUT COMPLICATIONS SNOMED Code(s): 46640489 Comment: - BG <180 today. Continue sliding scale lispro. - Resume oral medications at discharge (3) Hypoxia Current Visit: Yes Status: Acute Code(s): R09.02 - HYPOXEMIA SNOMED Code(s ): 057911946 Comment: - Resolving. Pt had desatted to 88% on rm air post-operatively. Had wheezing on exam. - Recieved supportive care with duonebs, O2 over night, but O2 has now been titrated off and lungs sound clear today. Pt denies any shortness of breath. Continue to encourage IS. (4) Hypertension Current Visit: Yes Status: Acute Code(s): I10 - ESSENTIAL (PRIMARY) HYPERTENSION SNOMED Code(s): 61779899 Comment: - Normotensive on norvasc and lopressor (5) Hyperlipemia Current Visit: Yes Status: Acute Code(s): E78.5 - HYPERLIPIDEMIA, UNSPECIFIED SNOMED Code(s): 21256096 Comment: - Continue lipitor (6) DVT prophylaxis Current Visit: Yes Status: Acute Code(s): FUG0067 - SNOMED Code(s): 455046255 Comment: - Continue eliquis (7) Full code status Current Visit: Yes Status: Acute Code(s): Z78.9 - OTHER SPECIFIED HEALTH STATUS SNOMED Code(s): 661402763
--- NOTE | 2018-03-05 14:35 | PN ---
Progress Note - Progress Note Date of Service: 03/05/18 SOAP: Subjective: []Patient seen OOB sitting at edge of bed. He is doing well overall. Denies SOB, CP, dizziness. He hopes to go home after PT this afternoon. He understands he will have Percocet for his pain on discharge. Objective: [] Vital Signs Temp 98.3 F 03/05/18 07:46 Pulse 86 03/05/18 07:46 Resp 16 03/05/18 14:10 BP 114/74 03/05/18 07:46 Pulse Ox 95 03/05/18 07:46 Intake & Output 03/04/18 03/05/18 03/05/18 18:59 06:59 18:59 Intake Total 3105 2318 590 Output Total 200 2525 200 Balance 2905 -207 390 Intake: IV Fluids 2300 1028 Cefazolin 53 LR 2300 975 IVPB 55 Cefazolin 55 Oral 750 1290 590 Output: Urine 1350 200 Fung 200 1175 Other: Estimated Void Large Large # Voids 1 Laboratory Results - last 24 hr 03/04/18 03/05/18 03/05/18 16:30 05:17 05:17 Hgb 12.7 L Hct 38 L Plt Count 175 MPV 8.0 INR (Anticoag Therapy) 0.94 Sodium Potassium Chloride Carbon Dioxide Anion Gap BUN Creatinine Est GFR ( Amer) Est GFR (Non-Af Amer) BUN/Creatinine Ratio Glucose POC Glucose (mg/dL) 221 H Calcium 03/05/18 03/05/18 03/05/18 05:17 07:29 12:09 Hgb Hct Plt Count MPV INR (Anticoag Therapy) Sodium 136 Potassium 4.3 Chloride 104 Carbon Dioxide 26 Anion Gap 6 BUN 10 Creatinine 0.62 L Est GFR ( Amer) 159.6 Est GFR (Non-Af Amer) 131.9 BUN/Creatinine Ratio 16.1 Glucose 166 H POC Glucose (mg/dL) 164 H 148 H Calcium 8.8 left knee dressings dry and intact calf NT and soft + DF left ankle sensation intact distally Assessment: []s/p Left total knee arthroplasty POD #1 Plan: []discharge home later today after therapy Eliquis 2.5 mg bid for 30 days Percocet for pain f/u in 10-[address] Lai
[2018-03-05 17:03] VITALS: BP 118/70
[2018-03-06] MEDS ORDERED: Atorvastatin* 80 MG TAB PO SCH (09:00)
--- NOTE | 2018-03-09 05:30 | DS ---
DISCHARGE SUMMARY: DATE OF ADMISSION: 03/04/18 DATE OF DISCHARGE: 03/05/18 ATTENDING PHYSICIAN: Yessenia Lai MD * (DICTATED BY TOSIN ZULETA) ADMISSION DIAGNOSIS: Severe end-stage degenerative osteoarthritis of the left knee joint. DISCHARGE DIAGNOSIS: Severe end-stage degenerative osteoarthritis of the left knee joint. SURGERY PERFORMED: Left total knee arthroplasty. HOSPITAL COURSE: The patient is a 62-year-old male with years of increasingly severe left knee pain. He failed conservative management with antiinflammatories, pain medications, intraarticular cortisone injections, and physical therapy. His plain films revealed [id number] arthritis due to continued pain and decreased quality of life. He elected to proceed with surgical intervention. He was taken to the operating room under the care of Dr. Yessenia Lai on the date of 03/04/18. He tolerated the aforementioned procedure without any complications. Postoperatively, he progressed very well with physical therapy and occupational therapy goals, bearing weight as tolerated on the left lower extremity. He had no difficulties. His pain was under good management with Percocet and he was found to be orthopedically and medically stable for discharge to home on the date of 03/05/18. CONDITION ON DISCHARGE: The patient was afebrile. His vital signs were stable. His left knee incision was healing without evidence of infection. His calf was soft and nontender. His neurovascular status was intact distally. He had active dorsiflexion and plantar flexion on the left ankle. PLAN: The patient discharged to home. He will do outpatient physical therapy. He will take Eliquis 2.5 mg p.o. b.i.d. for DVT prophylaxis for the next 30 days. He was given a prescription of Percocet 5/325 mg 1 to 2 tablets every 4 hours as needed for pain, #42, 0 refill. He will follow up in the office as scheduled with Dr. Lai in roughly 10 to 14 days. TOSIN ZULETA [id number]/[facility] #: [id number] [facility]
== END 2018-03-05 16:50 | disposition home or self-care (01) | DRG 302 ==
LOC: AA 05:32 → SSU 10:45
PROVIDERS: ADMIT Orthopaedic Surgery Adult Reconstructive Orthopaedic Surgery; ATTEND Orthopaedic Surgery Adult Reconstructive Orthopaedic Surgery
PROC: 0SRD069 Replacement of Left Knee Joint with Oxidized Zirconium on Polyethylene Synthetic Substitute, Cemented, Open Approach (ICD-10-PCS; principal; 2018-03-04 07:30)
DX: M17.12 Unilateral primary osteoarthritis, left knee (principal); E11.9 Type 2 diabetes mellitus without complications; I10 Essential (primary) hypertension; I25.10 Atherosclerotic heart disease of native coronary artery without angina pectoris; F17.210 Nicotine dependence, cigarettes, uncomplicated; M25.462 Effusion, left knee; M21.162 Varus deformity, not elsewhere classified, left knee; H91.93 Unspecified hearing loss, bilateral; R68.82 Decreased libido; M25.762 Osteophyte, left knee; E66.09 Other obesity due to excess calories; N52.9 Male erectile dysfunction, unspecified; E78.5 Hyperlipidemia, unspecified; R09.02 Hypoxemia; F52.9 Unspecified sexual dysfunction not due to a substance or known physiological condition; Z82.61 Family history of arthritis; Z82.3 Family history of stroke; Z80.42 Family history of malignant neoplasm of prostate; Z72.89 Other problems related to lifestyle; Z68.34 Body mass index [BMI] 34.0-34.9, adult; Z97.4 Presence of external hearing-aid; Z81.1 Family history of alcohol abuse and dependence
CPT/HCPCS: 36415; 80048; 85014; 85018; 85049; 85610; 94640; A9270-GY; C1776; J0690; J1100; J1170; J2250; J2405; J2704; J2795; J3010